=== PATIENT | male | born 1955 | race Caucasian/White ===

== ENCOUNTER → 2018-02-23 11:12 | Outpatient (CLI) | payer OTHER, SELFPAY ==
[2018-02-23 12:53] LABS: Anion Gap 9 (5-15); BUN 12 mg/dL (7-18); BUN/Creat Ratio 12.4 RATIO (10-20); Calcium,Total 8.5 mg/dL (8.5-10.1); Chloride 107 mmol/L (98-107); Cholesterol 210 mg/dL (200); Creatinine, Serum 0.97 mg/dL (0.70-1.30); EST Glomerular Filtration Rate 83 mL/min (>60); Est Glom Filt Rate - Afr Amer 101 mL/min (>60); Glucose 123 mg/dL (74-106); High Density Lipoprotein 35 mg/dL; Potassium 3.7 mmol/L (3.5-5.1); Sodium Level 145 mmol/L (136-145); Triglycerides 455 mg/dL
== END ==
PROVIDERS: Family Provider Family Medicine; PCP Family Medicine; Visit Provider Family Medicine
DX: Z00.00 Encounter for general adult medical examination without abnormal findings (principal); E29.1 Testicular hypofunction
CPT/HCPCS: 36415; 80048; 80061; 84403

== ENCOUNTER → 2018-08-24 11:00 | Outpatient (CLI) | payer OTHER, SELFPAY ==
[2018-08-24 12:58] LABS: Anion Gap 11 (5-15); BUN 12 mg/dL (7-18); BUN/Creat Ratio 11.3 RATIO (10-20); Calcium,Total 8.5 mg/dL (8.5-10.1); Chloride 108 mmol/L (98-107); Cholesterol 209 mg/dL (200); Creatinine, Serum 1.06 mg/dL (0.70-1.30); EST Glomerular Filtration Rate 75 mL/min (>60); Est Glom Filt Rate - Afr Amer 90 mL/min (>60); Glucose 134 mg/dL (74-106); High Density Lipoprotein 38 mg/dL; Potassium 4.1 mmol/L (3.5-5.1); Sodium Level 143 mmol/L (136-145); Triglycerides 296 mg/dL; Very Low Density Lipoprotein 59 mg/dL (5-40)
--- OUTSIDE RECORDS SUMMARY | 2018-10-29 02:09 | XMS RPT_ITS ---
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 / Community E29.1(ICD-10) Hospital Repository 02/23/2018 Unknown Z00.00 - Encounter Sam Rodríguez for general adult [facility] examination Repository without abnormal findings / Z00.00(ICD-10) PROCEDURES PROCEDURES No Procedure Records FoundRESULTS RESULTS BASIC METABOLIC Collected: 08/24/2018 Status: F Source: [place] PROFILE (BMP) 11:01 AM [facility] REPOSITORY TYPE CODE TESTS RESULT OUT OF RANGE REFERENCE UNITS LAB L501.0100 74-106 mg/dL High GLU 134 Result Comment: Fasting Glucose result greater than or equal to 126 mg/dL suggests DIABETES MELLITUS per A.D.A. criteria. Please note revised GLUCOSE reference range effective 2017. LAB L501.1000 7-18 mg/dL Normal BUN 12 LAB L501.1100 0.70-1.30 mg/dL Normal CREAT,SERUM 1.06 Result Comment: The validity of the calculated GFR AND GFRAA in patients over 70 years has not been determined. Clinical correlation is essential. LAB L501.1110 >60 mL/min Normal EST GFR 75 Result Comment: Non- GFR Calc LAB L501.1115 >60 mL/min Normal EST GFR - AA 90 Result Comment: GFR Calc LAB L501.1300 10-20 RATIO Normal BUN/CRE 11.3 LAB L501.2200 8.5-10.1 mg/dL CA Normal 8.5 LAB L501.5300 136-145 mmol/L NA Normal 143 LAB L501.5600 3.5-5.1 mmol/L K Normal 4.1 LAB L501.5900 98-107 mmol/L High CL 108 LAB L501.6100 21.0-32.0 mmol/L Normal CO2 24.0 LAB L501.6200 5-15 Normal GAP 11 Performed By: #### L500.2500, L500.4100 #### [facility] [address] [place], [place], [address] LIPID PROFILE Collected: 08/24/2018 Status: F Source: [place] 11:01 [facility] REPOSITORY TYPE CODE TESTS RESULT OUT OF RANGE REFERENCE UNITS LAB L501.4900 200 mg/dL High CHOL 209 Result Comment: <200 mg/dL Desirable 200-240 mg/dL Borderline >240 mg/dL High Risk LAB L501.5000 mg/dL High TRIG 296 Result Comment: The drugs N-Acetylcysteine and Metamizole may falsely depress this assay. Serum Triglycerides Reference Interval Normal <150 mg/dL Borderline high 150 - 199 mg/dL High 200 - 499 mg/dL Very High > or = 500 mg/dL LAB L501.6400 mg/dL Low HDL 38 Result Comment: The drugs N-Acetylcysteine and Metamizole may falsely depress this assay. Reference Range HDL <40 mg/dL Low HDL Cholesterol HDL >or= 60 mg/dL High HDL Cholesterol LAB L501.6500 0-130 mg/dL Normal LDL 112 LAB L501.6600 5-40 mg/dL High VLDL 59 Performed By: #### L500.2500, L500.4100 #### [facility] [address] [place], [place], [address] TESTOSTERONE, SERUM TOTAL Collected: 08/24/2018 Status: F Source: [place] 11:01 [facility] REPOSITORY TYPE CODE TESTS RESULT OUT OF REFERENCE UNITS RANGE LAB L509.3000 ng/dL Testosterone Normal 616.81 Result Comment: NORMAL REFERENCE RANGES MALE AGE <50 123.06 - 813.86 ng/dL MALE AGE >50 89.98 - 780.10 ng/dL FEMALE PREMENOPAUSE AGE 21 - 60 9.01 - 47.94 ng/dL FEMALE POSTMENOPAUSE AGE 45 - 89 <7.00 - 45.62 ng/dL REFERENCE RANGE AND METHODOLOGY CHANGED 07/27/2017 Performed By: #### L509.3000 #### [facility] [address] [place], [place], [address] BASIC METABOLIC Collected: 02/23/2018 Status: F Source: [place] PROFILE (BMP) 11:19 AM [facility] [place]POSITORY TYPE CODE TESTS RESULT OUT OF RANGE REFERENCE UNITS LAB L501.0100 74-106 mg/dL High GLU 123 Result Comment: Fasting Glucose result from 100 to 125 mg/dL suggests IMPAIRED HOMEOSTASIS per A.D.A. criteria. Please note revised GLUCOSE reference range effective 2017. LAB L501.1000 7-18 mg/dL Normal BUN 12 LAB L501.1100 0.70-1.30 mg/dL Normal CREAT,SERUM 0.97 Result Comment: The validity of the calculated GFR AND GFRAA in patients over 70 years has not been determined. Clinical correlation is essential. LAB L501.1110 >60 mL/min Normal EST GFR 83 Result Comment: Non- GFR Calc LAB L501.1115 >60 mL/min Normal EST GFR - AA 101 Result Comment: GFR Calc LAB L501.1300 10-20 RATIO Normal BUN/CRE 12.4 LAB L501.2200 8.5-10.1 mg/dL CA Normal 8.5 LAB L501.5300 136-145 mmol/L NA Normal 145 LAB L501.5600 3.5-5.1 mmol/L K Normal 3.7 LAB L501.5900 98-107 mmol/L CL Normal 107 LAB L501.6100 21.0-32.0 mmol/L Normal CO2 29.0 LAB L501.6200 5-15 Normal GAP 9 Performed By: #### L500.2500, L500.4100 #### [facility] [address] [place], [address] LIPID PROFILE Collected: 02/23/2018 Status: F Source: [place] 11:19 AM [facility] [place]POSITORY TYPE CODE TESTS RESULT OUT OF RANGE REFERENCE UNITS LAB L501.4900 200 mg/dL High CHOL 210 Result Comment: <200 mg/dL Desirable 200-240 mg/dL Borderline >240 mg/dL High Risk LAB L501.5000 mg/dL High TRIG 455 Result Comment: The drugs N-Acetylcysteine and Metamizole may falsely depress this assay. TRIGLYCERIDE IS GREATER THAN 400 mg/dL. LDL RESULT IS INVALID AND WILL NOT BE REPORTED. Serum Triglycerides Reference Interval Normal <150 mg/dL Borderline high 150 - 199 mg/dL High 200 - 499 mg/dL Very High > or = 500 mg/dL LAB L501.6400 mg/dL Low HDL 35 Result Comment: The drugs N-Acetylcysteine and Metamizole may falsely depress this assay. Reference Range HDL <40 mg/dL Low HDL Cholesterol HDL >or= 60 mg/dL High HDL Cholesterol LAB L501.6500 0-130 mg/dL Test Normal not performed LDL LAB L501.6600 5-40 mg/dL Test Normal not performed VLDL Performed By: #### L500.2500, L500.4100 #### [facility] [address] [place], [address] TESTOSTERONE, SERUM TOTAL Collected: 02/23/2018 Status: F Source: [place] 11:19 AM [facility] [place]POSIT[place] TYPE CODE TESTS RESULT OUT OF REFERENCE UNITS RANGE LAB L509.3000 ng/dL Testosterone Normal 273.51 Result Comment: NORMAL REFERENCE RANGES MALE AGE <50 123.06 - 813.86 ng/dL MALE AGE >50 89.98 - 780.10 ng/dL FEMALE PREMENOPAUSE AGE 21 - 60 9.01 - 47.94 ng/dL FEMALE POSTMENOPAUSE AGE 45 - 89 <7.00 - 45.62 ng/dL REFERENCE RANGE AND METHODOLOGY CHANGED 07/27/2017 Performed By: #### L509.3000 #### [facility] [address] [place], [address] ALLERGIES ALLERGIES No Allergies Records FoundENCOUNTERS ENCOUNTERS ADMIT/DISCHARGE ACCOUNT ADMITTING ENCOUNTER LOCATION SOURCE NUMBER CLASS 08/24/2018 [id number] Ambulatory [facility] ing:PLAB Repository 02/23/2018 [id number] [facility] 3 [facility] ing:PLAB Repository PAYERS PAYERS ENCOUNTER GUARANTOR PAYER SUBSCRIBER SOURCE 08/24/2018 FAUSTINO SEE3 CLARITZA Primary JENNY Morrison [place] Insurance:MEDICAL LONGDOB: [facility] [address]Zne: (419) [facility] [id number] [address] () Number: Repository [id number] Date:[id number] [place] [id number]: 08/24/2018 Secondary NOT GIVENUNK [place] Insurance:SELF PAY [facility] Number: Effective Repository Date:2018-08-24 02/23/2018 FAUSTINO SEE3 CLARITZA Primary Jenny EscobedoB: Olga Lidia [address] [place] [address] Insurance:MEDICAL [id number] Community [id number]: (419) [place] [address] () Number: Repository [id number] Date:[id number] [address] [place] [id number]: 02/23/2018 Secondary NOT GIVENUNK Olga Lidia Insurance:SELF PAY [facility] Number: Effective Repository Date:2018-02-23
== END ==
PROVIDERS: Family Provider Family Medicine; PCP Family Medicine; Visit Provider Family Medicine
DX: Z00.00 Encounter for general adult medical examination without abnormal findings (principal); E29.1 Testicular hypofunction
CPT/HCPCS: 36415; 80048; 80061; 84403

== ENCOUNTER → 2018-11-30 14:39 | Outpatient (CLI) | payer OTHER, SELFPAY ==
[2018-11-30 16:27] LABS: Hemoglobin A1c 6.1 % (4.2-6.3)
[2018-11-30 16:38] LABS: Anion Gap 7 (5-15); BUN 14 mg/dL (7-18); BUN/Creat Ratio 17.1 RATIO (10-20); Calcium,Total 8.6 mg/dL (8.5-10.1); Chloride 107 mmol/L (98-107); Cholesterol 269 mg/dL (200); Creatinine, Serum 0.82 mg/dL (0.70-1.30); EST Glomerular Filtration Rate 100 mL/min (>60); Est Glom Filt Rate - Afr Amer 121 mL/min (>60); Glucose 104 mg/dL (74-106); High Density Lipoprotein 34 mg/dL; PSA,Total - Annual Screen 0.76 ng/mL (0.00-4.00); Potassium 3.9 mmol/L (3.5-5.1); Sodium Level 141 mmol/L (136-145); Triglycerides 954 mg/dL
== END ==
PROVIDERS: Family Provider Family Medicine; PCP Family Medicine; Referring Provider Family Medicine; Visit Provider Family Medicine
DX: Z00.00 Encounter for general adult medical examination without abnormal findings (principal); E29.1 Testicular hypofunction; R73.09 Other abnormal glucose
CPT/HCPCS: 36415; 80048; 80061; 83036; 84153; 84403; G0103

== ENCOUNTER → 2019-02-26 10:06 | Outpatient (CLI) | payer OTHER, SELFPAY ==
[2019-02-26 12:48] LABS: ALB/GLOB Ratio 1.6 RATIO (0.9-2.4); AST(SGOT) 27 U/L (15-37); Alanine Aminotransfer ALT/SGPT 42 U/L (16-61); Albumin, Serum 3.9 g/dL (3.2-5.0); Alkaline Phosphatase 119 U/L (45-117); Anion Gap 9 (5-15); BUN 9 mg/dL (7-18); BUN/Creat Ratio 9.6 RATIO (10-20); Calcium,Total 8.6 mg/dL (8.5-10.1); Chloride 106 mmol/L (98-107); Creatinine, Serum 0.93 mg/dL (0.70-1.30); EST Glomerular Filtration Rate 87 mL/min (>60); Est Glom Filt Rate - Afr Amer 105 mL/min (>60); Globulin 2.5 g/dL (2.2-4.2); Glucose 148 mg/dL (74-106); Protein, Total 6.4 g/dL (6.4-8.2); Sodium Level 143 mmol/L (136-145)
[2019-02-26 13:16] LABS: Hemoglobin A1c 6.9 % (4.2-6.3)
== END ==
PROVIDERS: Family Provider Family Medicine; PCP Family Medicine; Visit Provider Family Medicine
DX: E29.1 Testicular hypofunction (principal); E80.4 Gilbert syndrome; R73.09 Other abnormal glucose
CPT/HCPCS: 36415; 80053; 83036; 84403

== ENCOUNTER → 2019-05-30 10:51 | Outpatient (CLI) | payer OTHER, SELFPAY ==
[2019-05-30 12:59] LABS: Hemoglobin A1c 6.5 % (4.2-6.3)
[2019-05-30 13:12] LABS: Anion Gap 7 (5-15); BUN 8 mg/dL (7-18); BUN/Creat Ratio 8.9 RATIO (10-20); Calcium,Total 8.6 mg/dL (8.5-10.1); Chloride 107 mmol/L (98-107); Cholesterol 151 mg/dL (200); EST Glomerular Filtration Rate 90 mL/min (>60); Est Glom Filt Rate - Afr Amer 109 mL/min (>60); Glucose 128 mg/dL (74-106); High Density Lipoprotein 37 mg/dL; PSA,Total - Annual Screen 1.07 ng/mL (0.00-4.00); Potassium 4.1 mmol/L (3.5-5.1); Sodium Level 143 mmol/L (136-145); Triglycerides 332 mg/dL; Very Low Density Lipoprotein 66 mg/dL (5-40)
== END ==
PROVIDERS: Family Provider Family Medicine; PCP Family Medicine; Referring Provider Family Medicine; Visit Provider Family Medicine
DX: E78.5 Hyperlipidemia, unspecified (principal); E11.9 Type 2 diabetes mellitus without complications; E29.1 Testicular hypofunction; Z12.5 Encounter for screening for malignant neoplasm of prostate
CPT/HCPCS: 36415; 80048; 80061; 83036; 84153; 84403; G0103

== ENCOUNTER → 2019-11-29 10:43 | Outpatient (CLI) | payer MEDICARE, OTHER, SELFPAY ==
[2019-11-29 12:16] LABS: Absolute Lymphocyte Count 1.01 X10^3/uL (0.83-4.51); Absolute Neutrophil Count 3.7 X10^3/uL (2.0-7.7); Basophil# 0.03 X10^3/uL; Basophil% 0.5 % (0-1); Eosinophil# 0.23 X10^3/uL; Eosinophils% 4.1 % (0-5); Hematocrit 45.9 % (40-54); Hemoglobin 15.8 g/dL (13.0-16.5); Lymphocyte # 1.01 X10^3/ul (4.0); Lymphocyte % 18.1 % (19-41); Mean Corp Hgb Conc 34.4 g/dL (32-36); Mean Corpuscular Hgb 31.2 pg (27.0-32.0); Mean Corpuscular Volume 90.7 fL (80-94); Mean Platelet Vol. 11.8 fl (6.2-12.0); Monocyte# 0.57 X10^3/uL; Monocyte% 10.2 % (0-10); NRBC Flagged by Analyzer 0 % (0-5); Neutrophil # 3.71 X10^3/uL (2.7-7.7); Neutrophil % 66.6 % (47-70); Platelet Count 133 K/mm3 (150-450); RBC Distribution Width CV 13.4 % (11.6-14.6); RBC Distribution Width SD 44.3 fl (35.1-43.9); Red Blood Count 5.06 M/mm3 (4.6-6.2); White Blood Count 5.6 K/mm3 (4.4-11.0)
[2019-11-29 12:31] LABS: Anion Gap 6 (5-15); BUN 12 mg/dL (7-18); BUN/Creat Ratio 13.5 RATIO (10-20); Calcium,Total 8.3 mg/dL (8.5-10.1); Chloride 109 mmol/L (98-107); Creatinine, Serum 0.89 mg/dL (0.70-1.30); EST Glomerular Filtration Rate 91 mL/min (>60); Est Glom Filt Rate - Afr Amer 110 mL/min (>60); Glucose 135 mg/dL (74-106); PSA,Total- Diagnostic 1.16 ng/mL (0.0-4.0); Sodium Level 143 mmol/L (136-145)
== END ==
PROVIDERS: PCP Family Medicine; Referring Provider Family Medicine; Visit Provider Family Medicine
DX: E29.1 Testicular hypofunction (principal); E11.9 Type 2 diabetes mellitus without complications
CPT/HCPCS: 36415; 80048; 84153; 84403; 85025

== ENCOUNTER → 2020-05-28 10:37 | Outpatient (CLI) | payer MEDICARE, OTHER, SELFPAY | PROVIDERS: PCP Family Medicine; Referring Provider Family Medicine; Visit Provider Family Medicine | DX: E29.1 Testicular hypofunction (principal) | CPT/HCPCS: 36415; 84403 ==

== ENCOUNTER → 2020-08-27 10:06 | Outpatient (CLI) | payer MEDICARE, OTHER, SELFPAY ==
[2020-08-27 12:36] LABS: Anion Gap 5 (5-15); BUN 10 mg/dL (7-18); BUN/Creat Ratio 10.3 RATIO (10-20); Calcium,Total 8.6 mg/dL (8.5-10.1); Chloride 112 mmol/L (98-107); Cholesterol 133 mg/dL (200); Creatinine, Serum 0.97 mg/dL (0.70-1.30); EST Glomerular Filtration Rate 82 mL/min (>60); Est Glom Filt Rate - Afr Amer 99 mL/min (>60); Glucose 130 mg/dL (74-106); High Density Lipoprotein 34 mg/dL; Potassium 3.9 mmol/L (3.5-5.1); Sodium Level 143 mmol/L (136-145); Triglycerides 271 mg/dL; Very Low Density Lipoprotein 54 mg/dL (5-40)
== END ==
PROVIDERS: PCP Family Medicine; Referring Provider Family Medicine; Visit Provider Family Medicine
DX: E11.9 Type 2 diabetes mellitus without complications (principal); E29.1 Testicular hypofunction
CPT/HCPCS: 36415; 80048; 80061; 84403

== ENCOUNTER 2020-09-05 10:46 | Day surgery (SDC) | payer MEDICARE, OTHER, SELFPAY ==
[2020-08-29 15:07] VITALS: BMI 36.6
--- NOTE | 2020-09-05 | HEM_PTH ---
PATIENT: FAUSTINO CORRAL [place] [facility] [id number] AGE/SX: 65/M ROOM: RE09/05/[address]: Dr. Tom Lind MD : 1955 BED: DIS: 09/05/2020 SPEC #: [id number] RECD: 09/05/20 14:48 STATUS: SHANEKA NAN #: [id number] HEMAL: 09/05/20 00:[address]: Tom Lind DEPT: SURGICAL PATHOLOGY RECD BY: Abel Wyman ENTERED: 09/08/20 10:51 SP TYPE: HEMORRHOID OTHR DR: Dr. Sam Rodríguez MD Tissues: HEMORRHOIDS Procedures: Surgery Specimen Level III HEADER OPERATION: Hemorrhoidectomy PRE-OP DIAGNOSIS: Grade III hemorrhoids TISSUE SUBMITTED: Left lateral hemorrhoidal tissue MICROSCOPIC DIAGNOSIS Left lateral hemorrhoidal tissue, hemorrhoidectomy: Submucosal vascular ectasia and thrombosis consistent with hemorrhoids. AM:juan 09/09/2020 MICROSCOPIC DESCRIPTION Slides are reviewed. GROSS DESCRIPTION Received in fixative is one container labeled with the patient's name and designated left lateral hemorrhoidal tissue. The specimen consists of three irregular fragments of light to dark ventura soft tissue ranging in size from 1 to 2.8 cm. Serial sections do not reveal mass lesions. Loop Cutter sections are submitted in one cassette. / AM:juan 09/08/20 TC:5 CPT: 14504
--- NOTE | 2020-09-05 06:40 | HP_ITS ---
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 Accompanied by: Is patient in pain?: No Allergies salicylic acid [From P and S (salicylic acid)] Allergy (Intermediate, Verified 08/29/20 15:09) stomach pain Medications aspirin 81 mg chewable tablet 81 mg PO DAILY 08/29/20 [History Confirmed 08/29/20] glimepiride 1 mg tablet 1 mg PO DAILY 08/29/20 [History Confirmed 08/29/20] paroxetine HCl 40 mg tablet 40 mg PO DAILY 08/29/20 [History Confirmed 08/29/20] rosuvastatin 10 mg tablet 10 mg PO DAILY 08/29/20 [History Confirmed 08/29/20] testosterone cypionate 200 mg/mL intramuscular oil 100 mg IM Q2W 08/29/20 [History Confirmed 08/29/20] PFSH Medical History Anxiety (Acute) Arthritis (Acute) Asthma (Acute) Blood in stool (Acute) Diabetes (Acute) Hemorrhoids (Acute) History of CVA (cerebrovascular accident) (Acute) History of back problems (Acute) Obesity (Acute) Surgical History (Updated 08/29/20 @ 15:06 by Lashanda Noble) Hx of hemorrhoidectomy (Acute) Family History (Updated 08/29/20 @ 15:07 by Lashanda Noble) Mother Breast cancer Colon cancer Social History (Updated 08/29/20 @ 16:[address] Tom Lind MD) Smoking Status: Former smoker alcohol intake: never substance use type: does not use HPI HPI HPI: FAUSTINO CORRAL is a 65 M who presents to the office today for HPI HPI Surgical H&P: Yes HPI: FAUSTINO LONG, is a 65 M who presents to the office today for Bleeding hemorrhoids. The patient reports that he has been having blood in the bowl and it has been very red. He had a hemorrhoidectomy about 10 years ago and reports that he had relief for years afterwards but for the last 4 years he has had discomfort in the rectal area as well as bleeding. This is worse especially with mowing the lawn. He reports his last colonoscopy was approximately 6 years ago. ROS General General: Yes weight change; no appetite, fatigue, colon cancer, breast cancer or weakness HEENT HEENT: No difficulty swallowing, eye injury, eye surgery, swollen glands or hoarseness Endo Endocrine: Yes diabetes mellitus; no thyroid disease, thyroid cancer, Hair loss, heat intolerance or cold intolerance Skin Skin: Yes rash; no changing moles Breast Breast: No left breast lump, right breast lump, nipple discharge, breast pain, abnormal mammogram, abnormal US or breast enlargement Musc Musculoskeletal: Yes back problems and arthritis; no rheumatoid arthritis, gout or joint pain Cardio Cardiovascular: No murmur, pacemaker, heart disease, atrial fibrillation, high blood pressure, heart attack, heart stent, palpitations, shortness of breat with exertion or chest pain Psych Psychiatric: Yes anxiety; no depression or hearing voices Resp Respiratory: No shortness of breath, No sleep apnea, No cough, No COPD, Yes asthma, No emphysema, No wheezing Gastro Gastrointestinal: No abdominal pain, No nausea or vomiting, No diarrhea, No constipation, Yes blood in stool, No acid reflux, Yes hemorrhoids, No ulcers, No gallbladder problem, No black,tarry stools Jamin Hematologic: No blood thinners, No blood disorders, No bleeding, No anemia, No blood clots Neuro Neurologic: No system reviewed and no additional complaints, except as docu, No as per HPI, No abnormal walking, No abnormal hearing, No abnormal movements, No abnormal speech, No behavioral changes, No burning sensations, No confusion, No seizure-like activity, No unsteadiness, No dizziness, No localized weakness, No frequent falls, No headache(s), No lack of coordination, No loss of vision, No memory loss, No numbness, No other visual disturbances, No radiating pain, No restless legs, No sensory deficit, No fainting, No tingling, No tremor(s), No weakness, Yes other (Mini stroke) Exam Const General: cooperative Orientation: alert, oriented x3 Chest Breast Palpation: No nipple discharge Resp Effort & Inspection: normal respiratory effort Auscultation: clear to auscultation bilaterally Cardio Rate: regular rate Rhythm: regular rhythm Heart Sounds: no murmurs GI Inspection: non-distended Palpation: soft, nontender Other: On rectal exam the patient does have a protruding external hemorrhoid on the left side which has erosion and ulceration. Assessment & Plan Problems 1. Grade III hemorrhoids K64.2 Plan The patient has bleeding hemorrhoids which appear to be internal and external. It is hard to tell if this is a masslike structure or external hemorrhoid. I would recommend exam under anesthesia with excision of this and send it for pathology. I discussed the risks of bleeding, infection, incontinence or urinary retention as well as muscular injury. The patient understands the risks and has been to proceed. We discussed the current risks associated with COVID-19. While it is understood that there is a community spread of COVID-19, the risk of meera COVID-19 while at [facility] ([facility]) is very low; however, the risk cannot be completely mitigated because of the community spread of the disease. We discussed in detail the risk of exposure to and/or potential harm posed by the COVID-19 virus with having a surgery/procedure at this time versus the risk of delaying the surgery/procedure. It is not possible to know either the risk of delaying the surgery or procedure or chance of getting an infection with perfect accuracy, but a joint decision was made to proceed at this time with the scheduled surgery/procedure as indicated on the consent form. Patient was notified that we will need to comply with any screening or testing [facility] wishes to perform or that surgery may be delayed for any positive results. Tom Lind MD Pager: [facility] [address] [place] [address], [address] [place] [address] Office: Coding Level of Care Code Off vis,new,level 3 Diagnoses Grade III hemorrhoids K64.2 ??Hemorrhoid type: third degree I have re-examined the patient. There are no clinical changes since date of exam.
[2020-09-05 11:19] VITALS: BP 145/81; PULSE 65; RESP 18; TEMP 36.6; O2SAT 96; BMI 34.4
[2020-09-05] MEDS: Lactated Ringers 1,000 ML 100 ML IV (11:27)
[2020-09-05] MEDS: Cefotetan 2 GM in 0.9% NS 100 ML IV (12:34)
[2020-09-05] MEDS: Lubricating Jelly 60 GM Tube 30 GM TOPICAL (12:40)
[2020-09-05] MEDS: Bupivacaine Mpf 0.5% 30 ML VIAL (12:45)
[2020-09-05] MEDS: Dibucaine 30 GM Tube 1 APPLIC (12:50)
[2020-09-05 13:10] VITALS: BP 145/81; BP 170/75; PULSE 75; RESP 20; TEMP 36.6; O2SAT 99
--- NOTE | 2020-09-05 13:11 | DCINST_ITS ---
Discharge Diet: No Restrictions Discharge Activity: Return to Normal Activity, May Not Drive - while you are taking narcotic pain medications. Do not drive, work with heavy equipment or sign legal documents for 24 hours after your surgery. Additional Activity Instructions:: Be aware that pain medications may cause nausea. You should typically eat light foods as you take your pain medications. Pain medications may also cause constipation, if you have difficulty with this please discuss with your doctor. Call your doctor if your incision/area has: Continuous Slow Oozing, Sudden Increased Bleeding, Increased Pain/ Swelling, Increased Redness, Foul Smelling Discharge, Swelling at the incision site Call your doctor if you observe: Fever of 101 or Higher Additional Dressing/Incision Instructions:: Leave the operative bandage on for 2 days. If a local anesthetic plug was placed in the anal area, try not to expel for [address]ucaine ointment on the perianal area as needed. Sitz baths twice daily and after bowel movements. Allergies/Adverse Reactions: Allergies Penicillins [PCN] Adverse Reaction (Verified 09/05/20 11:17) Upset Stomach Medications to take at Discharge aspirin 81 mg chewable tablet 81 mg PO DAILY 08/29/20 glimepiride 1 mg tablet 1 mg PO DAILY 08/29/20 paroxetine HCl 40 mg tablet 40 mg PO DAILY 08/29/20 rosuvastatin 10 mg tablet 10 mg PO DAILY 08/29/20 testosterone cypionate 200 mg/mL intramuscular oil 100 mg IM Q2W 08/29/20 Docusate Sodium [Colace] 100 mg PO BID #20 cap 09/05/20 Oxycodone HCl/Acetaminophen [Percocet 5-325 mg Tablet] 1 - 2 tab PO Q6H PRN PRN 7 Days #50 tablet 09/05/20 The following prescriptions were given: Docusate Sodium [Colace] 100 mg PO BID #20 cap Transmission Status: Pending to [facility] Oxycodone HCl/Acetaminophen [Percocet 5-325 mg Tablet] 1 - 2 tab PO Q6H PRN PRN 7 Days #50 tablet PRN Reason: Pain Score 4-10/10 Transmission Status: Sent to [facility] Primary Care Physician: Sam Rodríguez MD [Primary Care Provider] - Test Results: Test results from this visit will be discussed in further detail at your follow- up appointment, if applicable. Please Follow Up With: Tom Lind MD When: Please call to schedule 2 week follow up appointment. [phone]
--- NOTE | 2020-09-05 13:13 | PCM.OPRPT ---
Problem List (1) Hemorrhoids Status: Acute Qualifiers: Hemorrhoid type: second degree Qualified Code(s): K64.1 - Second degree hemorrhoids Report of Operation Date of Procedure: 09/05/20 Pre-Operative Diagnosis: Hemorrhoids with bleeding Post-Operative Diagnosis: Same Surgery/Procedure Performed:: Hemorrhoidectomy Specimen's removed: Left lateral hemorrhoid Description of Procedure: Patient was taken back to the operating room and general anesthesia was initiated. The patient was placed in the prone jackknife position. The buttocks were taped open. The perineal region was prepped and draped in usual sterile fashion. The patient had a tongue of tissue on the left side of the anus which was an internal and external hemorrhoid column. I well-lubricated retractor was placed into the anus and the hemorrhoidal tissue in the left lateral position was removed using harmonic scalpel. There was good hemostasis and the mucosa was reapproximated using a running 3-0 chromic suture. The area was irrigated and suctioned dry and the rest of the anus was inspected and there appeared to be no other areas where the bleeding was originating. Local anesthetic was injected in all 4 quadrants around the anus. Next a Gelfoam pad soaked with dibucaine cream was rolled and placed into the rectum and a dressing was placed. Patient was awoken and taken to PACU in stable condition. - Admit VTE Documentation VTE Mechan Device Prophylaxis: SCD's
[2020-09-05 13:15] VITALS: BP 134/65; BP 145/81; PULSE 78; RESP 18; O2SAT 98
[2020-09-05 13:16] LABS: Bedside Glucose 130 mg/dL (70-110)
[2020-09-05 13:30] VITALS: BP 128/61; BP 145/81; PULSE 76; RESP 20; O2SAT 97
[2020-09-05 13:45] VITALS: BP 120/64; BP 145/81; PULSE 78; RESP 18; TEMP 36.9; O2SAT 97
[2020-09-05 13:45] LABS: Bedside Glucose 148 mg/dL (70-110)
[2020-09-05] MEDS: Acetaminophen 325 MG Tablet PO (14:14)
[2020-09-05] MEDS: oxyCODONE 5 MG Tablet PO (14:14)
[2020-09-05 14:56] VITALS: BP 141/75; BP 145/81; PULSE 79; RESP 16; TEMP 37.1; O2SAT 96
== END 2020-09-05 15:01 | disposition home or self-care (01) ==
LOC: SDC 10:46 → AC 10:47
PROVIDERS: PCP Family Medicine; Referring Provider Surgery; Visit Provider Surgery
PROC: (CPT 46255; principal; 2020-09-05 12:15)
DX: K64.1 Second degree hemorrhoids (principal); Z20.828 Contact with and (suspected) exposure to other viral communicable diseases; F41.9 Anxiety disorder, unspecified; M19.90 Unspecified osteoarthritis, unspecified site; J45.909 Unspecified asthma, uncomplicated; E11.9 Type 2 diabetes mellitus without complications; E66.9 Obesity, unspecified; Z68.36 Body mass index [BMI] 36.0-36.9, adult; K58.9 Irritable bowel syndrome, unspecified; E78.00 Pure hypercholesterolemia, unspecified; Z86.73 Personal history of transient ischemic attack (TIA), and cerebral infarction without residual deficits; Z79.84 Long term (current) use of oral hypoglycemic drugs; Z79.82 Long term (current) use of aspirin; Z79.899 Other long term (current) drug therapy; Z87.891 Personal history of nicotine dependence
CPT/HCPCS: 46255; 82962; 87426; 88304; C9803; J7120; J2405

== ENCOUNTER → 2021-02-25 10:57 | Outpatient (CLI) | payer MEDICARE, OTHER, SELFPAY ==
[2021-02-25 12:34] LABS: Microalbumin,Random Urine 36.6 mg/L (NO RANGE EST.); Microalbumin:Creatinine Ratio 12.7 mg/g CRE (<30 mg/g CRE)
[2021-02-25 12:55] LABS: ALB/GLOB Ratio 1.6 RATIO (0.9-2.4); AST(SGOT) 30 U/L (15-37); Alanine Aminotransfer ALT/SGPT 45 U/L (16-61); Albumin, Serum 4.1 g/dL (3.2-5.0); Alkaline Phosphatase 109 U/L (45-117); Anion Gap 6 (5-15); BUN 13 mg/dL (7-18); BUN/Creat Ratio 13.3 RATIO (10-20); Calcium,Total 8.3 mg/dL (8.5-10.1); Chloride 108 mmol/L (98-107); Cholesterol 153 mg/dL (200); Creatinine, Serum 0.98 mg/dL (0.70-1.30); EST Glomerular Filtration Rate 82 mL/min (>60); Est Glom Filt Rate - Afr Amer 99 mL/min (>60); Globulin 2.5 g/dL (2.2-4.2); Glucose 123 mg/dL (74-106); High Density Lipoprotein 40 mg/dL; PSA,Total - Annual Screen 1.51 ng/mL (0.00-4.00); Potassium 3.7 mmol/L (3.5-5.1); Protein, Total 6.6 g/dL (6.4-8.2); Sodium Level 141 mmol/L (136-145); Triglycerides 330 mg/dL; Very Low Density Lipoprotein 66 mg/dL (5-40)
== END ==
PROVIDERS: PCP Family Medicine; Visit Provider Family Medicine
DX: Z12.5 Encounter for screening for malignant neoplasm of prostate (principal); E29.1 Testicular hypofunction; E11.9 Type 2 diabetes mellitus without complications
CPT/HCPCS: 36415; 80053; 80061; 82043; 82570; 84153; 84403; G0103

== ENCOUNTER → 2021-12-30 | Outpatient (CLI) | payer MEDICARE, OTHER, SELFPAY ==
--- NOTE | 2021-12-30 10:25 | RAD_ITS ---
INDICATION: BACK PAIN EXAMINATION/TECHNIQUE: X-RAY - XR Spine Lumbar Min 4 Views COMPARISON: None. FINDINGS: VERTEBRAE: Preserved vertebral body height. No fracture. 3 mm of grade 1 anterolisthesis of L4 on L5.. Slight straightening of the normal lumbar lordotic curvature. Severe degenerative disc disease at the L5-S1 level with near complete intervertebral disc space height loss. Mild to moderate degenerative disc disease at L1-L2 with mild disc space height loss and anterior osteophytic spurring. Multilevel facet arthropathy most severe at L5-S1 and to a lesser degree, L3-L4 and L4-L5. INCLUDED ABDOMEN: Included bowel gas pattern is non-obstructive. No radiopaque foreign bodies. RAD/L/S Spine Min 4 Views IMPRESSION: 1. No acute fracture or malalignment. 2. Grade 1 anterolisthesis of L4 on L5. 3. Multilevel degenerative changes most prominent at L5-S1 where there is severe degenerative disease and facet arthropathy.. Electronically Signed: Joseph Omalley, at 15:52 EDT ,
== END | disposition home or self-care (01) ==
LOC: MTRAD 10:20
PROVIDERS: PCP Family Medicine; Referring Provider Family Medicine; Visit Provider Family Medicine
DX: M43.16 Spondylolisthesis, lumbar region (principal); M51.36 Other intervertebral disc degeneration, lumbar region
CPT/HCPCS: 72110

== ENCOUNTER → 2022-01-14 | Outpatient (CLI) | payer MEDICARE, OTHER, SELFPAY ==
--- NOTE | 2022-01-14 15:18 | MRI_ITS ---
STUDY: MRI LUMBAR SPINE WITHOUT CONTRAST REASON FOR EXAM: Male, 66 years old. BACK PAIN INTO BACK OF BILATERAL LEGS TECHNIQUE: Standardized fat and water weighted pulse sequences were obtained in the sagittal and axial planes. COMPARISON: Lumbar spine x-ray dated DECEMBER 30, 2021 FINDINGS: T12-L1: Mild disc desiccation and several no change in endplate degenerative signal. No significant disc herniation or bulging. Normal bilateral facet joints. Normal central canal and bilateral lateral recesses. Normal bilateral intervertebral neural foramina. Normal lumbar lordosis. There is a levoscoliosis of the lumbar spine. Normal conus medullaris that terminates at the T12-L1 level. L1-2: Moderate disc space narrowing and mild to moderate endplate degenerative changes. Diffuse disc bulge/osteophyte complex. Retrolisthesis of L1 on L2 of no more than 2 mm. Mild central canal stenosis is present as well as facet joint and ligament of flava hypertrophy. Normal bilateral intervertebral neural foramina. L2-3: Mild to moderate disc space narrowing with minimal annular bulging. Retrolisthesis of less than 2 mm. Mild facet joint and ligament of flava hypertrophy contributing to mild central canal stenosis. Normal bilateral intervertebral neural foramina. L3-4: Mild to moderate disc space narrowing with broad-based is herniation/spur complex combined with moderate facet joint hypertrophy results in moderate central canal stenosis. Mild bilateral foraminal stenosis. Mild endplate degenerative changes. L4-5: Normal endplates. Diffuse disc desiccation and minimal posterior disc space narrowing and annular bulging. Anterolisthesis of L4 and L5 of 2 to 3 mm uncovering the posterior aspect of the disc. Severe central canal stenosis is present due to combine disc bulging and significant facet joint hypertrophy. Mild bilateral foraminal stenosis. L5-S1: Moderate disc space narrowing with minor diffuse annular bulging. Mild to moderate endplate degenerative changes. Normal bilateral facet joints. Normal central canal and bilateral lateral recesses. Normal bilateral intervertebral neural foramina. Normal visualized sacral ala. Normal visualized paraspinous soft tissue structures. MRI/Spine Lumbar (Routine) IMPRESSION: 1. Multilevel degenerative changes, as described above. 2. Moderate to severe central canal stenosis at L3-L4 and L4-L5. Electronically Signed: Candelario Darden MD at 9:22 EDT ,
== END | disposition home or self-care (01) ==
LOC: MRI 15:16
PROVIDERS: PCP Family Medicine; Referring Provider Family Medicine; Visit Provider Family Medicine
DX: M51.36 Other intervertebral disc degeneration, lumbar region (principal); M48.061 Spinal stenosis, lumbar region without neurogenic claudication
CPT/HCPCS: 72148

== ENCOUNTER → 2022-02-22 | Outpatient (CLI) | payer MEDICARE, OTHER, SELFPAY ==
[2022-02-22 12:34] LABS: Anion Gap 7 (5-15); BUN 17 mg/dL (7-18); Calcium,Total 8.7 mg/dL (8.5-10.1); Chloride 107 mmol/L (98-107); Cholesterol 150 mg/dL (200); Creatinine, Serum 0.81 mg/dL (0.70-1.30); EST Glomerular Filtration Rate 101 mL/min (>60); Est Glom Filt Rate - Afr Amer 122 mL/min (>60); Glucose 149 mg/dL (74-106); High Density Lipoprotein 46 mg/dL; Potassium 3.6 mmol/L (3.5-5.1); Sodium Level 141 mmol/L (136-145); Triglycerides 234 mg/dL; Very Low Density Lipoprotein 47 mg/dL (5-40)
== END | disposition home or self-care (01) ==
LOC: MFPLAB 10:41
PROVIDERS: PCP Family Medicine; Visit Provider Family Medicine
DX: E11.9 Type 2 diabetes mellitus without complications (principal)
CPT/HCPCS: 36415; 80048; 80061

== ENCOUNTER → 2022-04-16 | Outpatient (CLI) | payer MEDICARE, OTHER, SELFPAY ==
[2022-04-16 17:42] LABS: Hemoglobin A1c 7.5 % (3.8-5.6)
[2022-04-18 11:42] LABS: Fructosamine 307 umol/L (0-285)
== END | disposition home or self-care (01) ==
LOC: MFPLAB 14:51
PROVIDERS: PCP Family Medicine; Referring Provider Family Medicine; Visit Provider Orthopaedic Surgery
DX: E11.9 Type 2 diabetes mellitus without complications (principal)
CPT/HCPCS: 36415; 82985; 83036

== ENCOUNTER 2022-08-16 07:55 | Inpatient (IN) | payer MEDICARE, OTHER, SELFPAY ==
--- NOTE | 2022-08-06 09:20 | EKG12_ITS ---
Test Reason : PREOP Blood Pressure : / mmHG Vent. Rate : 060 BPM Atrial Rate : 060 BPM P-R Int : 162 ms QRS Dur : 084 ms QT Int : 428 ms P-R-T Axes : 045 019 062 degrees QTc Int : 428 ms Normal sinus rhythm Low voltage QRS (Limb Leads) Inferior infarct , age undetermined , cannot be excluded Abnormal ECG Confirmed by BETO GARZA, GELACIO ([id number]), school photograph editor MARJORIE HAYES ([id number]) on 08/10/2022 1:28:25 PM Referred By: MICHAEL Confirmed By:GELACIO PÉERZ MD
[2022-08-06 10:25] LABS: Absolute Lymphocyte Count 1.04 X10^3/uL (0.83-4.51); Absolute Neutrophil Count 3.1 X10^3/uL (2.0-7.7); Basophil# 0.05 X10^3/uL; Eosinophil# 0.17 X10^3/uL; Eosinophils% 3.5 % (0-5); Hematocrit 42.2 % (40-54); Hemoglobin 15.1 g/dL (13.0-16.5); Lymphocyte # 1.04 X10^3/ul (0.83-4.51); Lymphocyte % 21.7 % (19-41); Mean Corp Hgb Conc 35.8 g/dL (32-36); Mean Corpuscular Hgb 32.5 pg (27.0-32.0); Mean Corpuscular Volume 90.8 fL (80-94); Mean Platelet Vol. 12.2 fl (6.2-12.0); Monocyte# 0.45 X10^3/uL; Monocyte% 9.4 % (0-10); NRBC Flagged by Analyzer 0 % (0-5); Neutrophil # 3.07 X10^3/uL (2.7-7.7); Neutrophil % 64.2 % (47-70); Platelet Count 138 K/mm3 (150-450); RBC Distribution Width CV 13.2 % (11.6-14.6); RBC Distribution Width SD 43.3 fl (35.1-43.9); Red Blood Count 4.65 M/mm3 (4.6-6.2); White Blood Count 4.8 K/mm3 (4.4-11.0)
[2022-08-06 10:33] LABS: Hemoglobin A1c 5.9 % (3.8-5.6)
[2022-08-06 10:47] LABS: Magnesium 2.2 mg/dL (1.6-2.6)
[2022-08-06 11:05] LABS: Anion Gap 6 (5-15); BUN 19 mg/dL (7-18); BUN/Creat Ratio 18.1 RATIO (10-20); Calcium,Total 9.1 mg/dL (8.5-10.1); Chloride 109 mmol/L (98-107); Creatinine, Serum 1.05 mg/dL (0.70-1.30); EST Glomerular Filtration Rate 75 mL/min (>60); Est Glom Filt Rate - Afr Amer 90 mL/min (>60); Glucose 117 mg/dL (74-106); Potassium 3.7 mmol/L (3.5-5.1); Sodium Level 143 mmol/L (136-145)
[2022-08-06 11:33] LABS: HIV - WCH Non-Reactive (Nonreactive); Hepatitis B Surface Antibody Non-Reactive; Hepatitis C Antibody Non-Reactive (Nonreactive)
[2022-08-07 11:14] LABS: Hepatitis A AB, Total Negative (Negative)
--- NOTE | 2022-08-11 10:13 | HP.PCM_ITS ---
History and Physical MR#: [id number] Acct: [id number] Name:FAUSTINO KONG Rep #: [id number] : 1955 ? ? Provider: Dr. Daquan Mata, DO Age/Sex:? 66/M ? ? Location: [facility] [email or web address] Status: Signed Intake Intake Visit Reasons:?Lumbar spine Allergies Penicillins [PCN] Adverse Reaction (Verified 04/16/22 14:06) Upset Stomach Medications glimepiride 1 mg tablet 1 mg PO DAILY 08/29/20 [History Confirmed 04/16/22] paroxetine HCl 40 mg tablet (Paxil) 40 mg PO DAILY 08/29/20 [History Confirmed 04/16/22] cetirizine 10 mg tablet 10 mg PO DAILY PRN 01/22/22 [History Confirmed 04/16/22] meloxicam 15 mg tablet 15 mg PO DAILY 01/22/22 [History Confirmed 04/16/22] simvastatin 20 mg tablet 20 mg PO QHS 01/22/22 [History Confirmed 04/16/22] PFSH Medical History? Anxiety Arthritis Asthma Blood in stool Diabetes Hemorrhoids History of back problems History of CVA (cerebrovascular accident) Obesity Surgical History? Hx of hemorrhoidectomy (~09/05/20) Family History? Mother Breast cancer Colon cancer Social History? Smoking Status:? Former smoker alcohol intake:? never substance use type:? does not use HPI Lumbar spine Details: Parts of this documentation were recorded by a scribe, this documentation accurately reflects the service provided and the decisions made by me, Dr. Daquan Mata, DO 04/16/22 [id number]. FAUSTINO CORRAL is a 66 year old M here today for? F/U on lumbar spine after having a lumbar epidural steroid injection with Dr. Balbuena. Patient states he is still having pain. His pain level depends on how much he does. States that his pain is across his lower back and radiates down both legs. States that the injections he lped stop the numbness in his feet. States that he takes lexicam once a day. Sates that he uses an ice pack when he needs to. States that he uses the ice pack several times a week. States that the injections weren't helpful for his back the only thing it helped was his numbness. Sates that the meloxicam took care of most of his severe pain. Returns in the company of his after having had 2 epidural steroid injections by Dr. Balbuena.? Initially they helped him quite a bit and they are still helping him some however the pain is returning and he said that he is tired of living this way and would like something done surgically.? First saw him he was not too crazy about the concept of surgical intervention however now he is as he has finally reached a point where he does not want to put up with it anymore.? I went over his MRI scan again and he has severe stenosis at L4-5 and moderate stenosis at L3-4.? I think however that we would probably go ahead and decompress both levels.? I told him would be a solid month or more before we could actually do the surgery.? In addition to that on June 09 his is going to have a procedure and he needs to be there for that.? So its even pos sibly we will do the surgery until June or possibly we could do it as early as a month.? Since he is diabetic we are going to order a fructosamine level and hemoglobin A1c to be drawn today so that I can see what his baselines are at this point in time.? I will see him again at preop here in the clinic 1 week or so before his surgery. Coding Level of Care Code Off vis,est,level 2 Diagnoses Spinal stenosis of lumbar region with radiculopathy? M48.061; M54.16
[2022-08-16] VITALS (19 sets, daily range): BP systolic 93–124; BP diastolic 50–67; PULSE 55–81; RESP 12–18; TEMP 36.5–37.1; O2SAT 92–100; BMI 31.0
[2022-08-16] MEDS: Lactated Ringers 1,000 ML 15 ML IV (05:50)
[2022-08-16] MEDS: Magnesium 1 GM over 15 mins IV (05:55)
[2022-08-16] MEDS: Acetaminophen 500 MG Tablet 1000 MG PO ×3 (06:16→22:18)
[2022-08-16 06:25] LABS: Bedside Glucose 174 mg/dL (74-106)
[2022-08-16] MEDS: Cefazolin 2 GM in 0.9% Normal Saline 100 ML IV (08:15)
[2022-08-16] MEDS: THROMBIN (RECOMBINANT) 20,000 UNIT VIAL 20000 UNIT TOPICAL (08:45)
--- NOTE | 2022-08-16 08:55 | RAD_ITS ---
STUDY: X-RAY - LUMBAR SPINE REASON FOR EXAM: Male, 67 years old. LAMINECTOMY DECOMPRESSION L3-4, L4-5 TECHNIQUE: 1 view(s) of the lumbar spine were obtained. COMPARISON: None FINDINGS: The localization instrument is seen posterior to the L5-S1 disc space level. RAD/Spine 1 View Any Level IMPRESSION: The localization instrument is seen posterior to the L5-S1 disc space level. Electronically Signed: Og Yañez MD at 8:12 EST ,
--- NOTE | 2022-08-16 09:00 | RAD_ITS ---
STUDY: X-RAY - LUMBAR SPINE REASON FOR EXAM: Male, 67 years old. LAMINECTOMY DECOMPRESSION L3-4, L4-5 TECHNIQUE: 1 view(s) of the lumbar spine were obtained. COMPARISON: None FINDINGS: A single lateral view was obtained intraoperatively. The localization instrument is seen posterior to the L4-L5 disc space level. RAD/Spine 1 View Any Level IMPRESSION: The localization instrument is seen posterior to the L4-L5 disc space level. Electronically Signed: Og Yañez MD at 11:01 EST ,
--- NOTE | 2022-08-16 11:05 | OP.PCM_ITS ---
Report of Operation Description of Surgical Findings:: Preoperative diagnosis: Spinal stenosis L4-5 and L3-4 Postoperative diagnosis: The same Procedure: #1 lumbar laminectomy decompression L4-5 CPT code 28384 #2 lumbar laminectomy decompression L3-4 CPT code 00373/51 Surgeon: Dr. Mata bilingual legal assistant: Zeny MAYNARD Anesthesia: General endotracheal by [facility] Estimated blood loss: 150 cc Drains: Medium Hemovac Complications: None Procedure: Patient was taken to the OR where he was placed under general endotracheal anesthesia. A Curtis catheter was inserted. Neuro monitoring placed their leads on the patient. The patient was then moved onto the prone position on the Julián frame. After appropriate positioning with care to protect the genitalia his bony prominences the brachial plexus on both sides and the ulnar nerves on both sides the back was prepped and draped standard fashion. Made a longitudinal incision centered over L4 5 subcutaneous tissues were incised length of the skin incision I then opened the lumbar fascia to the left of the spinous process and elevated the paravertebral muscles off the lamina of 4 and 5 and intraoperative x-ray was taken however we were at L5-S1. We moved to the marker of 1 level and took another x-ray that confirmed that we were now at L4-5 this was also confirmed by the radiologist. I then continued elevated paravertebral muscles off the lamina of 4 and the lamina of L3. Note that he had a lot of bleeding it seemed like everything we touch would bleed. We then open the right side in the same fashion elevating paravertebral muscles off the lamina of 4 on the right side and the lamina of L3 on the right side. The super slide retractors were then put in place. Noted we thoroughly irrigated with copious amounts of sterile saline every 10 to 50 minutes in the course of the case. Using double-action rongeurs remove the spinous process of L4 and this brought the spinous process of L3. I thinned the lamina down with a double- action rongeurs at both levels. I then used sharp angled curettes to release ligamentum flavum off the underside of the lamina of L4. The laminectomy was carried out on both right and left with 45 degree Kerrison rongeurs I then remove the ligamentum flavum in retrograde fashion with a 45 degree Kerrison rongeurs the completely opened up the canal and opened up the stenotic portion. We then moved up to the of the L3 lamina where again we late release ligamentum flavum off the underside of the lamina of 3. 45 degree rongeurs were then used to gently remove the lamina on both sides. Note that we had to use cottonoids here and there for protection of the dura. I then remove the ligamentum flavum 1 bite at a time with a 45 degree Kerrison rongeurs and all the way out to the lateral recesses and open them up completely on both sides. Note that I I decompressed to the left side from the right side moved around to the other side of the table. Note that there was some question about the possibility of a facet cyst in between L3-4 and L4-5 even though it was not called by the radiologist it was a rather suspicious area even though I personally did not feel it was I had to check and I checked the dura on both sides in between 3 4 and 4 5 and found to be just dura nothing else. Then placed amniotic membrane over the laminectomy sites. This will prevent adhesions to the dura. We then placed Gelfoam over the top of that. A medium Hemovac was inserted. I then closed the lumbar fascia using [id number] suture with #1 Vicryl followed by reapproximation of the subcutaneous tissues in 2 layers with 2-0 Vicryl and finally the skin was approximated using skin clips. Sterile dressings were then applied. The patient was then recovered in the OR he was moved to his hospital bed and taken to recovery in satisfactory condition. This the end of operative summary on Delvin Matt. This is Dr. Mata dictating.
[2022-08-16 11:50] LABS: Bedside Glucose 159 mg/dL (74-106)
[2022-08-16] MEDS: oxyCODONE 5 MG Tablet PO ×3 (14:14→22:25)
[2022-08-16] MEDS: Paroxetine 20 MG Tablet 40 MG PO (15:45)
[2022-08-16] MEDS: hydroCHLOROthiazide 25 MG Tablet PO (15:45)
[2022-08-16] MEDS: amLODIPine 5 MG Tablet PO (15:45)
[2022-08-16] MEDS: Lisinopril 20 MG Tablet PO (15:45)
[2022-08-16] MEDS: Cefazolin 1 GM/50 ML BAG IV ×2 (15:46→23:31)
[2022-08-16] MEDS: Lactated Ringers 1,000 ML 100 ML IV ×2 (15:48→20:34)
--- NOTE | 2022-08-16 15:58 | PN.HOSP_ITS ---
Subjective Subjective Patient with history of chronic ongoing lumbar back pain following with chronic pain management with ongoing lumbar epidural steroid injections which have become less effective with ongoing lumbar pain as well as rad iation/radiculopathy to bilateral lower extremities with paresthesias s/p 08/16/2022 lumbar laminectomy and decompression of L3-4, L4-[address] Mata. Hospitalist consultation for medication management requested. Patient currently reporting a focal pain at the incision site otherwise denies any significant lumbar back pain or any radicular discomfort or paresthesias. He recently tolerated Jell-O and denies any nausea currently. Patient denies fevers, chills, nausea, emesis, abdominal pain, chest pain or dyspnea. Objective Data Objective Data Vital Signs: Vital Signs Temp Pulse Resp BP Pulse Ox O2 Del Method O2 Flow Rate 98 F 81 18 112/64 93 Nasal Cannula 2 08/16/22 15:57 08/16/22 15:57 08/16/22 15:57 08/16/22 15:57 08/16/22 15:57 08/16/22 15:57 08/16/22 15:57 Oxygen Flow Rate (L/min) 2 Oxygen Delivery Method Nasal Cannula Weight: 210 lb Body Mass Index (BMI) 31.0 Intake & Output: Intake and Output for Last 24 Hours 08/14/22 08/15/22 08/16/22 23:59 23:59 23:59 Intake Total 2362.50 / 2362.50 Output Total 393 / 393 Balance 1969.50 / 1969.50 Lab / Micro Data Result Diagrams: 08/06/22 09:31 08/06/22 09:31 Labs: Laboratory Results - last 24 hr 08/16/22 05:57: POC Glucose 174 H 08/16/22 11:32: POC Glucose 159 H Micro: Microbiology 08/06/22 09:31 Swab (Method) Nasal Screen MRSA/MSSA - Final Radiography Diagnostic Testing: Radiology Impression Spine X-Ray 08/16/22 09:00 IMPRESSION: The localization instrument is seen posterior to the L4-L5 disc space level. Electronically Signed: Og Yañez MD at 11:01 EST , Physical Exam Narrative Physical Examination: General: Awake, alert, oriented x 3 and cooperative, laying in the MedSurg bed, fatigued, denies any marked pain at this time. Skin: Normal color, normal turgor, no icterus, no cyanosis except status post recent R with dressings in place without drainage. HEENT: AT/NC, EOMI, PERRLA, mildly dry MM, no carotid bruits or JVD noted. Lungs: Mildly diminished, greater bases, poor effort, no rales, ronchi or wheez ing. Heart: Currently regular rate and rhythm; no gallop, rub audible. Abdomen: Soft, obese, NTTP, ND, mildly hyperactive BS, no HSM. Extremities: No cyanosis, no clubbing, mild ankle nonpitting edema, peripheral pulses intact, sensation intact. Neurological: Patient awake, alert, oriented as noted, cognitive function intact although patient is fatigued; pupils equally reactive to light and accomm odation, cranial nerves II-XII grossly normal, moving all 4 extremities although somewhat limited given recent lumbar surgery, strength accordingly moderately to severely globally creased but improving. Psychiatric: Affect appears fatigued, no acute evidence of depressive or anxiety feelings. Assessment & Plan Assessment/Plan (1) Spinal stenosis of lumbar region with radiculopathy: PLAN: Plan The patient is a 67 y/o M w/ PMHx: Hx TIA, HTN, HLD, Obesity, Diabetes mellitus type II, Anxiety and Depression, Former tobacco use, IBS, Cannabis usage, Hx Migraine headaches who presents to the [facility] 08/16/22 secondary to chronic ongoing lumbar back pain following with chronic pain management with ongoing lumbar epidural steroid injections which have become less effective with ongoing lumbar pain as well as radiation/radiculopathy to bilateral lower extremities with paresthesias for planned lumbar laminectomy and decompression of L3-4, L4-[address] Mata. #1. Chronic lumbar back pain with spinal stenosis of the lumbar region with associated bilateral lower extremity radiculopathy: Failed conservative therapies and treatments, admitted per Dr. Mata, s/p lumbar laminectomy and decompression of L3-4, L4-5, post-operative pain management, bowel regimen, DVT Prophylaxis, PT/OT/CM per surgery discretion. #2. History TIA: Recommend addition of low-dose aspirin therapy once cleared per surgery, continue hypertensive regimen, not on statin therapy per current list, continue diabetic interventions with temporary alterations as noted. #3. Hypertension: Continue home regimen including lisinopril, hydrochlorothiazide, amlodipine, PRN hydralazine. #4. Hyperlipidemia: Not on regimen, encourage continued outpatient follow-up. #5. Diabetes mellitus type II: May opt to hold oral home regimen, ADA diet, accu checks w/ ISS. #6. Chronic cannabis usage: Reported in history, if on chronic pain regimen will necessitate clean status. #7. Chronic migraine headaches: Per current list on a chronic regimen, will monitor and administer as needed agents if necessary. #8. Obesity: Weight loss and lifestyle changes encouraged. #9. Former tobacco use: Encourage continued tobacco cessation. #10. Anxiety and depression: We will continue patient home paroxetine regimen. #11. DVT prophylaxis: SCDs, chemoprophylaxis per surgery discretion given recent OR. Admission Evaluation Time spent evaluating chart, patient history, patient evaluation, care planning and discussion with specialists: 50 minutes. Charges/Coding Visit Charges Inpatient E&M: 24666 [facility] Hosp L3
[2022-08-16] MEDS: Ensure Surgery 237 ML LIQUID PO (16:43)
[2022-08-16 17:10] LABS: Bedside Glucose 181 mg/dL (74-106)
[2022-08-16] MEDS: Insulin Lispro 100 UNIT/ML INSULN.PEN SC (22:18)
[2022-08-16 23:00] LABS: Bedside Glucose 180 mg/dL (74-106)
[2022-08-16] MEDS: Morphine 2 MG/ML Syringe IV (23:35)
[2022-08-17 03:00] VITALS: BP 103/59; PULSE 62; RESP 18; TEMP 36.6; O2SAT 97
[2022-08-17] MEDS: oxyCODONE 5 MG Tablet PO ×2 (03:21→18:28)
[2022-08-17] MEDS: Morphine 2 MG/ML Syringe IV (05:36)
[2022-08-17] MEDS: Acetaminophen 500 MG Tablet 1000 MG PO ×3 (05:36→21:01)
[2022-08-17] MEDS: Lactated Ringers 1,000 ML 100 ML IV (05:37)
[2022-08-17 06:56] LABS: Bedside Glucose 135 mg/dL (74-106)
[2022-08-17 07:55] VITALS: BP 95/59; PULSE 60; RESP 18; TEMP 37.2; O2SAT 95
[2022-08-17 08:09] VITALS: O2SAT 95
--- NOTE | 2022-08-17 08:31 | PCM.PN.HOSP ---
Subjective Subjective Follow-up lumbar laminectomy and decompression Patient is a 67-year-old gentleman with history of chronic low back pain with spinal stenosis and bilateral lower extremity radiculopathy who underwent lumbar laminectomy and decompression of L3-4, L4-5. The hospitalist service was consulted to assist with management of patient medical comorbidities. Objective Data Objective Data Vital Signs: Vital Signs Temp Pulse Resp BP Pulse Ox O2 Del Method O2 Flow Rate 98.9 F 60 18 95/59 L 95 Room Air 2 08/17/22 07:55 08/17/22 07:55 08/17/22 07:55 08/17/22 07:55 08/17/22 08:09 08/17/22 08:09 08/17/22 03:00 Oxygen Flow Rate (L/min) 2 Oxygen Delivery Method Room Air Weight: 95.254 kg Body Mass Index (BMI) 31.0 Intake & Output: Intake and Output for Last 24 Hours 08/15/22 08/16/22 08/17/22 23:59 23:59 23:59 Intake Total 2889.17 / 2889.17 2155 / 2155 Output Total 483 / 483 2170 / 2170 Balance 2406.17 / 2406.17 -15 / -15 Lab / Micro Data Result Diagrams: 08/06/22 09:31 08/06/22 09:31 Labs: Laboratory Results - last 24 hr 08/16/22 11:32: POC Glucose 159 H 08/16/22 16:48: POC Glucose 181 H 08/16/22 22:14: POC Glucose 180 H 08/17/22 06:34: POC Glucose 135 H Micro: Microbiology 08/06/22 09:31 Swab (Method) Nasal Screen MRSA/MSSA - Final Radiography Diagnostic Testing: Radiology Impression Spine X-Ray 08/16/22 08:55 IMPRESSION: The localization instrument is seen posterior to the L5-S1 disc space level. Electronically Signed: Og Yañez MD at 8:12 EST , Spine X-Ray 08/16/22 09:00 IMPRESSION: The localization instrument is seen posterior to the L4-L5 disc space level. Electronically Signed: Og Yañez MD at 11:01 EST , Physical Exam Narrative GENERAL: cooperative HEENT: Atraumatic; normocephalic EYES; Anicteric, Normal Conjunctiva NECK; supple, normal thyroid, RESPIRATORY: Diminished to auscultation CARDIOVASCULAR: Regular S1 S2, GI: soft, normoactive bowel sounds, : No Renal angle tenderness; EXTREMITIES: No edema, no clubbing, MUSCULOSKELETAL: no muscle wasting NEURO: Awake; no lateralizing signs. SKIN: No Rash PSYCH; Flat affect Assessment & Plan Assessment/Plan (1) Spinal stenosis of lumbar region with radiculopathy: PLAN: Plan Patient is a 67-year-old gentleman with history of chronic low back pain with spinal stenosis and bilateral lower extremity radiculopathy who underwent lumbar laminectomy and decompression of L3-4, L4-5. The hospitalist service was consulted to assist with management of patient medical comorbidities. 1. Status postlumbar laminectomy and decompression of L3-4, L4-5 On 08/16/[address] Mata. Reason for surgery was chronic low back pain with spinal stenosis and associated bilateral lower extremity radiculopathy having failed conservative management. Patient postoperative orders regarding pain management PT OT DVT prophylaxis deferred to primary service 2. Hypertension - Blood pressure controlled amlodipine and HCTZ/lisinopril did continue with plans to adjust doses if needed 3. Diabetes mellitus type 2 ? Apparently managed with diet patient was placed on Accu-Cheks before meals and at bedtime with sliding scale coverage 4. Class I obesity with BMI of 31.0 ? Weight loss advised 5. Depression with anxiety ? Patient is on paroxetine did continue 6. DVT prophylaxis ? Defer to primary service Total time spent on patient; 36 minutes Charges/Coding Visit Charges Inpatient E&M: 17449 Subs Hosp L2
[2022-08-17] MEDS: hydroCHLOROthiazide 25 MG Tablet PO (09:57)
[2022-08-17] MEDS: Lisinopril 20 MG Tablet PO (09:57)
[2022-08-17] MEDS: amLODIPine 5 MG Tablet PO (09:57)
[2022-08-17] MEDS: Paroxetine 20 MG Tablet 40 MG PO (09:57)
--- NOTE | 2022-08-17 11:22 | PCM.PN.ORT ---
Subjective Subjective Postop day #1. Patient is seen on rounds. He has been up and walking and he reports that all his leg pain when walking on the hallway is gone. Still has quite a bit of drainage in the Hemovac and he had quite a bit of blood loss yesterday so we will keep it in 1 more day. Probably remove it tomorrow and he will be able to go home. His dressing is dry and neurologically is intact in both lower extremities. Progress is satisfactory. Objective Data Objective Data Vital Signs: Vital Signs Temp Pulse Resp BP Pulse Ox O2 Del Method O2 Flow Rate 98.9 F 60 18 95/59 L 95 Room Air 2 08/17/22 07:55 08/17/22 07:55 08/17/22 07:55 08/17/22 07:55 08/17/22 08:09 08/17/22 08:09 08/17/22 03:00 Oxygen Flow Rate (L/min) 2 Oxygen Delivery Method Room Air Weight: 210 lb Body Mass Index (BMI) 31.0 Intake & Output: Intake and Output for Last 24 Hours 08/15/22 08/16/22 08/17/22 23:59 23:59 23:59 Intake Total 2889.17 / 2889.17 2155 / 2155 Output Total 483 / 483 2170 / 2170 Balance 2406.17 / 2406.17 -15 / -15 Lab / Micro Data Result Diagrams: 08/06/22 09:31 08/06/22 09:31 Labs: Laboratory Results - last 24 hr 08/16/22 11:32: POC Glucose 159 H 08/16/22 16:48: POC Glucose 181 H 08/16/22 22:14: POC Glucose 180 H 08/17/22 06:34: POC Glucose 135 H Micro: Microbiology 08/06/22 09:31 Swab (Method) Nasal Screen MRSA/MSSA - Final Radiography Diagnostic Testing: Radiology Impression Spine X-Ray 08/16/22 08:55 IMPRESSION: The localization instrument is seen posterior to the L5-S1 disc space level. Electronically Signed: Og Yañez MD at 8:12 EST , Spine X-Ray 08/16/22 09:00 IMPRESSION: The localization instrument is seen posterior to the L4-L5 disc space level. Electronically Signed: Og Yañez MD at 11:01 EST ,
[2022-08-17 12:30] LABS: Bedside Glucose 129 mg/dL (74-106)
--- NOTE | 2022-08-17 13:45 | CASEMGMT ---
ADRIANA XAVIER Assessment: Face to Face with pt for initial transition planning/care coordination assessment. RN DUC introduced self and role at [facility], pt voices understanding and consents to assessment. Pt is A/O x4 and answers all questions appropriately at this time. Pt sitting in chair in no distress with at bedside. Care providers, pharmacy, and demographics verified/updated. Admitting Dx: lumbar laminectomy decompression L4-5 and L3-4 PCP:Anne Specialists:Adolfo, BELLE Preferred Pharmacy: [facility] Insurance: [employer], MMO Prescription Benefit: yes LNOK: Fara Matt, Living Arrangements: Pt lives with and son in a two story home with 3 steps to enter. Pt reports he is I in ADL's and denies concerns at home. Transportation: Pt drives self and denies concerns with transportation. Pt can transport pt until he is able to drive. DME/HHC/SNF: Pt has a cane at home. Pt denies hx of HHC or SNF stays. Pt states no concerns with going home at time of dc. Pt ambulating halls with FWW. Provided pt with a verbal local in network list of DME companies, pt chose [employer]. Pt states no further concerns/needs. CM to follow. Advised pt to ask CM if any further question/concerns/needs arise, voices understanding. Pt Goal: Home Plan: Home with FWW.
[2022-08-17 14:04] VITALS: BP 99/68; PULSE 62; RESP 18; TEMP 37.1; O2SAT 93
[2022-08-17 17:05] LABS: Bedside Glucose 124 mg/dL (74-106)
[2022-08-17 18:18] VITALS: BP 93/53; PULSE 61; RESP 18; TEMP 36.6; O2SAT 93
[2022-08-17 20:52] VITALS: BP 102/64; PULSE 96; RESP 18; TEMP 36.4; O2SAT 58
[2022-08-17] MEDS: 0.9% Saline Lock 10 ML Syringe IV (21:04)
[2022-08-17 21:31] LABS: Bedside Glucose 137 mg/dL (74-106)
[2022-08-18 05:59] VITALS: BP 101/56; PULSE 57; RESP 18; TEMP 36.8; O2SAT 92
[2022-08-18] MEDS: Acetaminophen 500 MG Tablet 1000 MG PO ×2 (06:10→13:09)
[2022-08-18 07:01] LABS: Bedside Glucose 112 mg/dL (74-106)
[2022-08-18] MEDS: oxyCODONE 5 MG Tablet PO (08:02)
[2022-08-18] MEDS: Ensure Surgery 237 ML LIQUID PO ×2 (08:03→13:09)
[2022-08-18] MEDS: Paroxetine 20 MG Tablet 40 MG PO (08:03)
[2022-08-18 08:25] VITALS: BP 99/54; PULSE 58; RESP 16; TEMP 36.7; O2SAT 94
[2022-08-18 08:36] VITALS: O2SAT 97
--- NOTE | 2022-08-18 09:03 | PCM.PN.HOSP ---
Subjective Subjective Follow-up hypertension Patient seen participating physical therapy. Patient blood pressure low this a.m. with systolic of 99 and diastolic of 54. His a.m. antihypertensive medications held Objective Data Objective Data Vital Signs: Vital Signs Temp Pulse Resp BP Pulse Ox O2 Del Method O2 Flow Rate 98.1 F 58 L 16 99/54 L 94 Room Air 2 08/18/22 08:25 08/18/22 08:25 08/18/22 08:25 08/18/22 08:25 08/18/22 08:25 08/18/22 08:25 08/17/22 03:00 Oxygen Flow Rate (L/min) 2 Oxygen Delivery Method Room Air Weight: 95.254 kg Body Mass Index (BMI) 31.0 Intake & Output: Intake and Output for Last 24 Hours 08/16/22 08/17/22 08/18/22 23:59 23:59 23:59 Intake Total 2889.17 / 2889.17 3013.33 / 3013.33 200 / 200 Output Total 483 / 483 2545 / 2545 20 / 20 Balance 2406.17 / 2406.17 468.33 / 468.33 180 / 180 Lab / Micro Data Result Diagrams: 08/06/22 09:31 08/06/22 09:31 Labs: Laboratory Results - last 24 hr 08/17/22 11:45: POC Glucose 129 H 08/17/22 16:33: POC Glucose 124 H 08/17/22 21:00: POC Glucose 137 H 08/18/22 06:02: POC Glucose 112 H Micro: Microbiology 08/06/22 09:31 Swab (Method) Nasal Screen MRSA/MSSA - Final Physical Exam Narrative GENERAL: cooperative HEENT: Atraumatic; normocephalic EYES; Anicteric, Normal Conjunctiva NECK; supple, normal thyroid, RESPIRATORY: Diminished to auscultation CARDIOVASCULAR: Regular S1 S2, GI: soft, normoactive bowel sounds, : No Renal angle tenderness; EXTREMITIES: No edema, no clubbing, MUSCULOSKELETAL: no muscle wasting NEURO: Awake; no lateralizing signs. SKIN: No Rash PSYCH; Flat affect Assessment & Plan Assessment/Plan (1) Spinal stenosis of lumbar region with radiculopathy: PLAN: Plan Patient is a 67-year-old gentleman with history of chronic low back pain with spinal stenosis and bilateral lower extremity radiculopathy who underwent lumbar laminectomy and decompression of L3-4, L4-5. The hospitalist service was consulted to assist with management of patient medical comorbidities. 1. Status postlumbar laminectomy and decompression of L3-4, L4-5 On 08/16/[address] Mata. Reason for surgery was chronic low back pain with spinal stenosis and associated bilateral lower extremity radiculopathy having failed conservative management. Patient postoperative orders regarding pain management PT OT DVT prophylaxis deferred to primary service 2. Hypertension - Blood pressure controlled amlodipine and HCTZ/lisinopril did continue with plans to adjust doses if needed ? 08/18/2021. Patient amlodipine, lisinopril and HCTZ held in view of low blood pressure 3. Diabetes mellitus type 2 ? Apparently managed with diet patient was placed on Accu-Cheks before meals and at bedtime with sliding scale coverage 4. Class I obesity with BMI of 31.0 ? Weight loss advised 5. Depression with anxiety ? Patient is on paroxetine did continue 6. DVT prophylaxis ? Defer to primary service Total time spent on patient; 36 minutes Charges/Coding Visit Charges Inpatient E&M: 70529 Subs Hosp L2
[2022-08-18 11:10] VITALS: BP 94/54; PULSE 63; RESP 16; TEMP 36.4; O2SAT 96
[2022-08-18 11:46] LABS: Bedside Glucose 141 mg/dL (74-106)
--- NOTE | 2022-08-18 13:03 | DS.PCM_ITS ---
Providers Date of Admission: 08/17/22 Primary Care Physician: Dr. Sam Rodríguez MD Attending Physician: This is discharge summary on . This patient was admitted on Tuesday 2 days ago and underwent lumbar laminectomy at 2 levels that morning. Today I rem leoncio his drain and change his dressing. The incision is dry and healing well. He relates that his bilateral leg pain is completely resolved. Neurologically he is intact. Him and his are given directions regarding his activity care of his wound etc. He already has an appointment to see me in 14 days. I gave him oxycodone/acetaminophen 5-325 for pain control. This is the end of discharge summary on Delvin Matt. This is Dr. Mata dictating. Consultations 08/16/22 13:17 Consult: Hospitalist Routine Consulting Provider: Babs Awad Reason for Consult: Medical Management EMERGENT Consult: No MD Notified: Yes Date Notified: 08/16/22 Time Notified: 15:18 Method of Notification: Text Reason For Visit: LUMBAR LAMINECTOMY DECOMPRESSION L4-5 AND L3-4 Diagnosis Discharge Diagnosis (1) Spinal stenosis of lumbar region with radiculopathy: Status: Acute Code(s): M48.061 - Spinal stenosis, lumbar region without neurogenic claudication; M54.16 - Radiculopathy, lumbar region Medications at Discharge Home Medications glimepiride 1 mg tablet 1 mg PO DAILY 08/29/20 paroxetine HCl 40 mg tablet (Paxil) 40 mg PO DAILY 08/29/20 cetirizine 10 mg tablet 10 mg PO DAILY PRN ALLERGIES 01/22/22 meloxicam 15 mg tablet 15 mg PO DAILY 01/22/22 amlodipine 5 mg tablet 5 mg PO DAILY 08/03/22 lisinopril 20 mg-hydrochlorothiazide 25 mg tablet 1 tab PO DAILY 08/03/22 oxycodone-acetaminophen 5 mg-325 mg tablet 1 tab PO Q6H PRN pain 10 days #40 tab s 08/18/22 Weight / BMI Weight Weight: 210 lb Body Mass Index (BMI) 31.0 ABG / Lab / Microbiology Data Result Diagrams: 08/06/22 09:31 08/06/22 09:31 Laboratory: Laboratory Results - last 24 hr 08/17/22 16:33: POC Glucose 124 H 08/17/22 21:00: POC Glucose 137 H 08/18/22 06:02: POC Glucose 112 H 08/18/22 11:08: POC Glucose 141 H Microbiology: Microbiology 08/06/22 09:31 Swab (Method) Nasal Screen MRSA/MSSA - Final D/C Instructions May shower in (days): 4 May resume sexual activity in: 10-14 days Weight Bearing Status: Full weight bearing Meaningful Use Info Meaningful Use Diagnoses (Choose all that apply): None applicable Discharge Plan Admission Admit Date/Time: 08/17/22 13:32 Primary Reason for Your Visit: back surgery Attending Provider: Daquan Mata Primary Care Provider: Sam Rodríguez Consulting Providers: Babs Awad Discharge Orders/Prescriptions Prescriptions: No Action paroxetine HCl [Paxil] 40 mg tablet 40 mg PO DAILY glimepiride 1 mg tablet 1 mg PO DAILY meloxicam 15 mg tablet 15 mg PO DAILY cetirizine 10 mg tablet 10 mg PO DAILY PRN (Reason: ALLERGIES) amlodipine 5 mg Tablet 5 mg PO DAILY lisinopril-hydrochlorothiazide 20-25 mg Tablet 1 tab PO DAILY oxycodone-acetaminophen 5-325 mg tablet 1 tab PO Q6H PRN (Reason: pain) 10 Days Qty: 40 0RF Referrals / Follow Up: Sam Rodríguez MD [Primary Care Provider] - Disposition Disposition (needs filled in before D/C Order can be placed): Home, Self Care
--- NOTE | 2022-08-18 13:50 | CASEMGMT ---
Referral to [facility] sent via [facility] for FWW, pt ready for dc today.
== END 2022-08-18 14:48 | disposition home or self-care (01) | DRG 517 ==
LOC: SDC 14:40 → MS3 14:40
PROVIDERS: Anesthesiology; Admitting Provider Orthopaedic Surgery; PCP Family Medicine; Visit Provider Orthopaedic Surgery
PROC: (CPT 63030; principal; 2022-08-16 07:00)
DX: M48.061 Spinal stenosis, lumbar region without neurogenic claudication (principal); E11.9 Type 2 diabetes mellitus without complications; F41.9 Anxiety disorder, unspecified; M54.16 Radiculopathy, lumbar region; E78.00 Pure hypercholesterolemia, unspecified; I10 Essential (primary) hypertension; G43.709 Chronic migraine without aura, not intractable, without status migrainosus; G89.29 Other chronic pain; F32.A Depression, unspecified; E66.9 Obesity, unspecified; Z68.31 Body mass index [BMI] 31.0-31.9, adult; Z79.84 Long term (current) use of oral hypoglycemic drugs; Z79.899 Other long term (current) drug therapy; Z86.73 Personal history of transient ischemic attack (TIA), and cerebral infarction without residual deficits; Z87.891 Personal history of nicotine dependence
CPT/HCPCS: 36415; 72020; 80048; 82962; 83036; 83735; 85025; 86703; 86706; 86708; 86803; 87081; 93005; 94762; 97161; 97530; 99252; J7120; A4216; G0463; J2405; J3475

== ENCOUNTER → 2023-05-04 | Outpatient (CLI) | payer MEDICARE, OTHER, SELFPAY ==
[2023-05-04 13:14] LABS: Anion Gap 6 (5-15); BUN 12 mg/dL (7-18); BUN/Creat Ratio 12.6 RATIO (10-20); Calcium,Total 8.6 mg/dL (8.5-10.1); Chloride 111 mmol/L (98-107); Cholesterol 161 mg/dL (200); Creatinine, Serum 0.95 mg/dL (0.70-1.30); EST Glomerular Filtration Rate 84 mL/min (>60); Est Glom Filt Rate - Afr Amer 101 mL/min (>60); Glucose 131 mg/dL (74-106); High Density Lipoprotein 41 mg/dL; Potassium 3.5 mmol/L (3.5-5.1); Sodium Level 141 mmol/L (136-145); Triglycerides 406 mg/dL
== END | disposition home or self-care (01) ==
LOC: MFPLAB 11:07
PROVIDERS: PCP Family Medicine; Visit Provider Family Medicine
DX: E11.9 Type 2 diabetes mellitus without complications (principal)
CPT/HCPCS: 36415; 80048; 80061

== ENCOUNTER 2023-05-12 12:19 | Outpatient (CLI) | payer MEDICARE, OTHER, SELFPAY ==
--- NOTE | 2023-05-12 | IMM_PTH ---
PATIENT: FAUSTINO CORRAL LOC: [facility] U#:[id number] AGE/SX: 67/M ROOM: RE05/12/[address]: Dr. Sam Rodríguez MD : 1955 BED: DIS: 05/12/2023 SPEC #: [id number] RECD: 05/13/23 13:24 STATUS: SHANEKA NAN #: [id number] HEMAL: 05/12/23 00:[address]: Sam Rodríguez DEPT: IMMUNOHISTOCHEMISTRY RECD BY: Toña Presley Tissues: Skin of upper extremity and shoulder Procedures: CK5-6 (add) MELAN-A (initial) P40 (add) S-100 (add) PHYSICIAN & INSTITUTION [place] [id number] SPECIMEN INFORMATION: Tissue Source: Skin of right shoulder Clinical Info: Neoplasm Specimen Number: [id number] CPT code: 18784, 02054 x3 METHODOLOGY: Deparaffinized sections of prefer/formalin-fixed tissue or PAP/DQ stained slides are incubated with monoclonal/polyclonal antibodies/oligonucleotide probes. Localization is made via biotin free immunoperoxidase method. Appropriate controls are performed and reacted as expected. Results on target cell population are indicated in the following table: RESULTS: ANTIBODY / CLONE RESULT Melan A (A103) positive S-100 (4C4.9) positive CK5-6 (D5 & 1684) negative, rare P40 (BC28) negative These tests were developed and their performance characteristics determined by [facility]. They may not have been cleared or approved by the [place]. Food and Drug Administration. The FDA has determined that such clearance or approval is not necessary. The above immunohistochemical/dualISH markers are ordered and reviewed by the Pathologist. INTERPRETATION: Skin of right shoulder, excision: Malignant melanoma. AM:juan 05/20/2023
--- NOTE | 2023-05-12 10:00 | LES_PTH ---
PATIENT: FAUSTINO CORRAL LOC: [facility] U#:[id number] AGE/SX: 67/M ROOM: RE05/12/[address]: Dr. Sam Rodríguez MD : 1955 BED: DIS: 05/12/2023 SPEC #: [id number] RECD: 05/12/23 12:05 STATUS: SHANEKA NAN #: [id number] HEMAL: 05/12/23 10:[address]: Sam Rodríguez DEPT: SURGICAL PATHOLOGY RECD BY: June Seals Tissues: Skin of upper extremity and shoulder Procedures: Gen Path Consultation (on slides) Surgery Specimen Level IV HEADER OPERATION: Excision right shoulder PRE-OP DIAGNOSIS: Neoplasm TISSUE SUBMITTED: Right shoulder MICROSCOPIC DIAGNOSIS Skin lesion of right shoulder, biopsy: Malignant melanoma. See comment. AM:juan 05/20/2023 COMMENT This case was sent in consultation to [facility] and reviewed by Dr. Johnson Nation. The specifics of the synoptic report read: Breslow thickness: 0.4 mm Ulceration: Absent Mitosis/mm2: Not identified Tumor infiltrating lymphocytes: Absent Regression: Present Perineural invasion: Absent Vascular invasion: Absent Satellite nodules: Absent Margin status: Lateral: Positive for melanoma in situ. Deep: Negative The complete report is viewable in EMR. Immunohistochemistry ([id number]) supports the above diagnosis. Case has been reviewed in consultation with Dr. Perez who concurs with the above diagnosis. IDC:SJ MICROSCOPIC DESCRIPTION Slides are reviewed. GROSS DESCRIPTION Received is one container labeled with the patient's name and not further designated. The specimen consists of a piece of ventura-brown skin measuring 1.5 x 1.0 x 0.2 cm. The specimen is inked, serially sectioned and submitted entirely in one cassette. / CINDY:juan 05/12/2023 TC:0 CPT: 85809
== END 2023-05-12 23:59 | disposition home or self-care (01) ==
LOC: LABSPEC 12:23
PROVIDERS: PCP Family Medicine; Referring Provider Family Medicine; Visit Provider Family Medicine
DX: C43.62 Malignant melanoma of left upper limb, including shoulder (principal)
CPT/HCPCS: 88305; 88325; 88341; 88342

== ENCOUNTER → 2023-10-27 | Outpatient (CLI) | payer MEDICARE, OTHER, SELFPAY ==
[2023-10-27 12:49] LABS: ALB/GLOB Ratio 1.5 RATIO (0.9-2.4); AST(SGOT) 32 U/L (15-37); Alanine Aminotransfer ALT/SGPT 39 U/L (16-61); Alkaline Phosphatase 98 U/L (45-117); Anion Gap 7 (5-15); BUN 12 mg/dL (7-18); BUN/Creat Ratio 12.2 RATIO (10-20); Calcium,Total 9.1 mg/dL (8.5-10.1); Chloride 107 mmol/L (98-107); Cholesterol 161 mg/dL (200); Creatinine, Serum 0.98 mg/dL (0.70-1.30); EST Glomerular Filtration Rate 80 mL/min (>60); Est Glom Filt Rate - Afr Amer 97 mL/min (>60); Globulin 2.7 g/dL (2.2-4.2); Glucose 116 mg/dL (74-106); High Density Lipoprotein 43 mg/dL; Potassium 3.2 mmol/L (3.5-5.1); Protein, Total 6.7 g/dL (6.4-8.2); Sodium Level 143 mmol/L (136-145); Triglycerides 364 mg/dL; Very Low Density Lipoprotein 73 mg/dL (5-40)
== END | disposition home or self-care (01) ==
LOC: MFPLAB 10:47
PROVIDERS: PCP Family Medicine; Visit Provider Family Medicine
DX: E11.9 Type 2 diabetes mellitus without complications (principal)
CPT/HCPCS: 36415; 80053; 80061

== ENCOUNTER → 2024-01-25 | Outpatient (CLI) | payer MEDICARE, OTHER, SELFPAY ==
[2024-01-25 13:29] LABS: ALB/GLOB Ratio 1.5 RATIO (0.9-2.4); AST(SGOT) 32 U/L (15-37); Alanine Aminotransfer ALT/SGPT 48 U/L (16-61); Albumin, Serum 3.8 g/dL (3.2-5.0); Alkaline Phosphatase 117 U/L (45-117); Anion Gap 10 (5-15); BUN 11 mg/dL (7-18); BUN/Creat Ratio 12.6 RATIO (10-20); Calcium,Total 8.9 mg/dL (8.5-10.1); Chloride 110 mmol/L (98-107); Creatinine, Serum 0.88 mg/dL (0.70-1.30); EST Glomerular Filtration Rate 92 mL/min (>60); Est Glom Filt Rate - Afr Amer 111 mL/min (>60); Globulin 2.5 g/dL (2.2-4.2); Glucose 137 mg/dL (74-106); Potassium 3.5 mmol/L (3.5-5.1); Protein, Total 6.3 g/dL (6.4-8.2); Sodium Level 144 mmol/L (136-145)
== END | disposition home or self-care (01) ==
LOC: MFPLAB 10:53
PROVIDERS: PCP Family Medicine; Visit Provider Family Medicine
DX: E11.9 Type 2 diabetes mellitus without complications (principal)
CPT/HCPCS: 36415; 80053

== ENCOUNTER → 2024-05-21 | Outpatient (CLI) | payer MEDICARE, OTHER, SELFPAY ==
[2024-05-21 11:15] LABS: Hemoglobin A1c 6.2 % (3.8-5.6)
[2024-05-21 11:21] LABS: ALB/GLOB Ratio 1.5 RATIO (0.9-2.4); AST(SGOT) 42 U/L (15-37); Alanine Aminotransfer ALT/SGPT 70 U/L (16-61); Albumin, Serum 3.8 g/dL (3.2-5.0); Alkaline Phosphatase 119 U/L (45-117); Anion Gap 6 (5-15); BUN 12 mg/dL (7-18); BUN/Creat Ratio 12.1 RATIO (10-20); Chloride 108 mmol/L (98-107); Cholesterol 222 mg/dL (200); Creatinine, Serum 0.99 mg/dL (0.70-1.30); EST Glomerular Filtration Rate 80 mL/min (>60); Est Glom Filt Rate - Afr Amer 96 mL/min (>60); Globulin 2.6 g/dL (2.2-4.2); Glucose 147 mg/dL (74-106); High Density Lipoprotein 40 mg/dL; Protein, Total 6.4 g/dL (6.4-8.2); Sodium Level 140 mmol/L (136-145); Triglycerides 395 mg/dL; Very Low Density Lipoprotein 79 mg/dL (5-40)
[2024-05-21 11:50] LABS: Microalbumin,Random Urine 23.5 mg/L (NO RANGE EST.); Microalbumin:Creatinine Ratio 14.3 mg/g CRE (<30 mg/g CRE)
== END | disposition home or self-care (01) ==
LOC: MFPLAB 09:32
PROVIDERS: PCP Family Medicine; Visit Provider Family Medicine
DX: I10 Essential (primary) hypertension (principal); E11.9 Type 2 diabetes mellitus without complications; R53.83 Other fatigue
CPT/HCPCS: 36415; 80053; 80061; 82043; 82570; 83036; 84403; 84443

== ENCOUNTER → 2024-07-20 | Outpatient (CLI) | payer MEDICARE, OTHER, SELFPAY ==
[2024-07-20 10:06] LABS: Absolute Lymphocyte Count 1.02 X10^3/uL (0.83-4.51); Absolute Neutrophil Count 3.5 X10^3/uL (2.0-7.7); Basophil# 0.03 X10^3/uL; Basophil% 0.6 % (0-1); Eosinophil# 0.14 X10^3/uL; Eosinophils% 2.7 % (0-5); Hematocrit 45.5 % (40-54); Hemoglobin 15.6 g/dL (13.0-16.5); Lymphocyte # 1.02 X10^3/ul (0.83-4.51); Lymphocyte % 19.5 % (19-41); Mean Corp Hgb Conc 34.3 g/dL (32-36); Mean Corpuscular Hgb 31.8 pg (27.0-32.0); Mean Corpuscular Volume 92.9 fL (80-94); Mean Platelet Vol. 11.2 fl (6.2-12.0); Monocyte# 0.52 X10^3/uL; Monocyte% 9.9 % (0-10); NRBC Flagged by Analyzer 0 % (0-5); Neutrophil # 3.51 X10^3/uL (2.7-7.7); Neutrophil % 66.9 % (47-70); Platelet Count 144 K/mm3 (150-450); RBC Distribution Width CV 13.4 % (11.6-14.6); White Blood Count 5.2 K/mm3 (4.4-11.0)
[2024-07-20 10:56] LABS: PSA,Total - Annual Screen 1.89 ng/mL (0.00-4.00)
== END | disposition home or self-care (01) ==
LOC: MFPLAB 09:30
PROVIDERS: PCP Family Medicine; Referring Provider Family Medicine; Visit Provider Family Medicine
DX: E29.1 Testicular hypofunction (principal); Z12.5 Encounter for screening for malignant neoplasm of prostate
CPT/HCPCS: 36415; 84153; 84403; 85025; G0103

== ENCOUNTER → 2024-10-19 | Outpatient (CLI) | payer MEDICARE, OTHER, SELFPAY ==
[2024-10-19 10:20] LABS: Absolute Lymphocyte Count 1.03 X10^3/uL (0.83-4.51); Absolute Neutrophil Count 3.8 X10^3/uL (2.0-7.7); Basophil# 0.04 X10^3/uL; Basophil% 0.7 % (0-1); Eosinophil# 0.16 X10^3/uL; Eosinophils% 2.8 % (0-5); Hematocrit 48.1 % (40-54); Hemoglobin 16.7 g/dL (13.0-16.5); Lymphocyte # 1.03 X10^3/ul (0.83-4.51); Lymphocyte % 18.3 % (19-41); Mean Corp Hgb Conc 34.7 g/dL (32-36); Mean Corpuscular Hgb 31.7 pg (27.0-32.0); Mean Corpuscular Volume 91.4 fL (80-94); Mean Platelet Vol. 12.8 fl (6.2-12.0); Monocyte# 0.55 X10^3/uL; Monocyte% 9.8 % (0-10); NRBC Flagged by Analyzer 0 % (0-5); Neutrophil # 3.83 X10^3/uL (2.7-7.7); Platelet Count 141 K/mm3 (150-450); RBC Distribution Width CV 13.1 % (11.6-14.6); Red Blood Count 5.26 M/mm3 (4.6-6.2); White Blood Count 5.6 K/mm3 (4.4-11.0)
[2024-10-19 10:47] LABS: ALB/GLOB Ratio 2.1 RATIO (0.9-2.4); AST(SGOT) 34 U/L (<=37); Alanine Aminotransfer ALT/SGPT 36 U/L (<=46); Albumin, Serum 4.4 g/dL (3.4-4.8); Alkaline Phosphatase 123 U/L (40-129); Anion Gap 14 (5-15); BUN 19 mg/dL (4-19); BUN/Creat Ratio 18.5 RATIO (10-20); Calcium,Total 8.9 mg/dL (7.6-11.0); Carbon Dioxide 21.7 mmol/L (21.0-32.0); Chloride 106 mmol/L (98-108); Cholesterol 222 mg/dL (<=200); Creatinine, Serum 1.01 mg/dL (0.70-1.20); EST Glomerular Filtration Rate 80 (>60); Globulin 2.1 g/dL (2.2-4.2); Glucose 129 mg/dL (70-99); High Density Lipoprotein 34 mg/dL; Low Density Lipoprotein Calc. 102 mg/dL; PSA,Total- Diagnostic 1.31 ng/mL (0.00-4.00); Potassium 3.6 mmol/L (3.3-5.1); Protein, Total 6.5 g/dL (5.9-8.4); Sodium Level 141 mmol/L (133-145); Total Bilirubin 2.32 mg/dL (0.00-1.30); Triglycerides 426 mg/dL; Very Low Density Lipoprotein 85 mg/dL (5-40); cholesterol:hdl ratio screen 6.45
[2024-10-19 10:50] LABS: Hemoglobin A1c 6.6 % (<=5.6)
== END | disposition home or self-care (01) ==
LOC: MFPLAB 08:53
PROVIDERS: PCP Family Medicine; Referring Provider Family Medicine; Visit Provider Family Medicine
DX: E29.1 Testicular hypofunction (principal); E11.9 Type 2 diabetes mellitus without complications
CPT/HCPCS: 36415; 80053; 80061; 83036; 84153; 84402; 84403; 85025

== ENCOUNTER → 2025-02-18 | Outpatient (CLI) | payer MEDICARE, OTHER, SELFPAY ==
--- OUTSIDE RECORDS SUMMARY | 2025-02-18 11:44 | XMS RPT_ITS | CCD ---
Author Organization [facility] Care Team Providers Care Industrial Refrigeration Mechanic Name Role Phone Troy Dante Unavailable Unavailable Dante Simmons Unavailable Unavailable Anne, Dr. Vargas Primary Care Provider Anne, Dr. Vargas Referring Provider Dr. Daquan Mata Attending Provider [phone] Anne, Dr. Vargas Primary Care Provider Anne, Dr. Vargas Referring Provider Dr. Daquan Mata Attending Provider [phone] Daquan Mata Other Provider Dr. Daquan Mata Admit Provider Dr. Babs Awad Attending Provider Dr. Babs Awad Other Provider Dr. Aaron Wagner Attending Provider Unavailable FLETCHER GUIDRY Attending Unavaila ble SAM LUIS Primary Care Unavailable Luis, Sam Primary Care Unavailable Luis, Sam Attending Unavailable Luis, Sam Referring Unavailable Luis, Sam Primary Care Unavailable Luis, Sam Attending Unavailable Luis, Sam Attending Unavailable Luis, Sam Primary Care Unavailable Luis, Sam Attending Unavailable Luis, Sam Primary Care Unavailable Luis, Sam Referring Unavailable Luis, Sam Primary Care Unavailable Luis, Sam Attending Unavailable Luis , Dr. Vargas Primary Care Provider Anne GARZA, Dr. Vargas Attending Provider Anne GARZA, Dr. Vargas Referring Provider Allergies Allergy Classification Reported Allergen(s) Allergy Type Date of Onset Reaction(s) Facility (11 sources) Penicillins; Translations: [penicillins] Propensity to adverse reactions to drug (disorder) AOF, Upset Stomach [facility] Repository Medications Current Medications Medication Drug Class(es) Dates Sig (Normalized) Sig (Original) amLODIPine 5 mg oral tablet (4 sources) Dihydropyridine Calcium Channel Linda Start: 08-03-2022 take 1 tablet by mouth once daily Amlodipine 5 mg Tablet Active 5 mg PO DAILY August 03, 2022 1:00am cetirizine hydrochloride 10 mg oral tablet (6 sources) Histamine-1 Receptor Antagonist Start: 01-22-2022 take 1 tablet by mouth once daily as needed Cetirizine 10 mg tablet Active 10 mg PO DAILY as needed for ALLERGIES January 22, 2022 12:00am glimepiride 1 mg oral tablet (8 sources) Sulfonylurea Start: 08-29-2020 take 1 tablet by mouth once daily Glimepiride 1 mg tablet Active 1 mg PO DAILY August 29, 2020 1:00am hydroCHLOROthiazide 25 mg / lisinopril 20 mg oral tablet (4 sources) Thiazide Diuretic, Angiotensin Converting Enzyme Inhibitor Start: 08-03-2022 Lisinopril-Hydr ochlorothiazide 20-25 mg Tablet Active 1 {tbl} PO DAILY August 03, 2022 1:00am Start: 08-03-2022 take 1 tablet by trupti th once daily Lisinopril-Hydrochlorothiazide Active 1 TABLET PO DAILY August 03, 2022 1:00am PARoxetine hydrochloride 40 mg oral tablet (8 sources) Serotonin Reuptake Inhibitor Start: 08-29-2020 take 1 tablet by mouth once daily Paroxetine Hcl (Paxil) 40 mg tablet Active 40 mg PO DAILY August 29, 2020 1:00am simvastatin 20 mg oral tablet (2 sources) HMG-CoA Reductase Inhibitor Start: 01-22-2022 take 20 mg by mouth at bedtime Simvastatin Active 20 MG PO AT BEDTIME January 22, 2022 12:00am Completed/Discontinued Medications Medication Drug Class(es) Dates Sig (Normalized) Sig (Original) acetaminophen 325 mg / oxyCODONE hydrochloride 5 mg oral tablet (12 sources) Opioid Agonist Start: 08-18-2022 End: 08-28-2022 Oxycodone-Acetamino phen 5-325 mg tablet Discontinued 1 {tbl} PO EVERY 6 HOURS as needed for pain 40 August 18, 2022 August 273 1:00am August 28, 2022 1:10am Start: 08-18-2022 End: 08-28-2022 take 1 tablet by mouth every six hours Oxycodone-Acetaminophen Discontinued 1 TABLET PO EVERY 6 HOURS 40 10 August 18, 2022 August 28, 2022 1:10am Start: 09-05-2020 End: 09-12-2020 Oxycodone-Acetaminophen 1 EA CH tablet Discontinued 1 - 2 {tbl} PO EVERY 6 HOURS NEEDED as needed for Pain Score 4-10/10 50 7 September 05, 2020 September 11, 2020 1:00am September 12, 2020 1:03am Start: 09-05-2020 End: 09-12-2020 take 1 tablet by mouth every six hours as needed Oxycodone-Acetaminophen Discontinued 1 - 2 TABLET PO EVERY 6 HOURS NEEDED 50 7 September 05, 2020 September 12, 2020 1:03am aspirin 81 mg chewable tablet (8 sources) Platelet Aggregation Inhibitor, Nonsteroidal Anti-inflammatory Drug Start: 08-29-2020 End: 01-22-2022 take 1 tablet by mouth once daily Aspirin 81 mg tablet,chewable Discontinued 81 mg PO DAILY August 29, 2020 1:00am January 22, 2022 1:03pm docusate sodium 100 mg oral capsule (8 sources) Start: 09-05-2020 End: 01-22-2022 take 1 capsule by mouth twice daily Docusate Sodium 100 MG capsule Discontinued 100 mg PO TWICE A DAY September 05, 2020 1:00am January 22, 2022 1:02pm meloxicam 15 mg oral tablet (6 sources) Nonsteroidal Anti-inflammatory Drug Start: 01-22-2022 End: 09-03-2022 take 1 tablet by mouth once daily Meloxicam 15 mg tablet Discontinued 15 mg PO DAILY January 22, 2022 12:00am September 03, 2022 11:27am rosuvastatin calcium 10 mg oral tablet (8 sources) HMG-CoA Reductase Inhibitor Start: 08-29-2020 End: 01-22-2022 take 1 tablet by mouth once daily Rosuvastatin (Crestor) 10 mg tablet Discontinued 10 mg PO DAILY August 29, 2020 1:00am January 22, 2022 1:02pm 1 ml testosterone cypionate 200 mg/ml injection (8 sources) Androgen Start: 08-29-2020 End: 01-22-2022 inject 100 mg by intramuscular injection every other week Testosterone Cypionate (Depo-Testosterone ) 200 mg/mL oil Discontinued 100 mg IM every 2 weeks August 29, 2020 1:00am January 22, 2022 1:02pm Problems Problem Classification Problem Date Documented Date Episodic/Chronic Diabetes mellitus without complication (1 source) Type 2 diabetes mellitus without complications; Translations: [Type 2 diabetes mellitus without complications] Onset: 02-02-2024 Chronic E Codes: Fall (2 sources) Unspecified fall, initial encounter; Translations: [Unspecified fall, initial encounter] Onset: 07-06-2024 Episodic Essential hypertension (1 source) Essential (primary) hypertension; Translations: [Essential (primary) hypertension] Onset: 06-13-2024 Chronic Hemorrhoids (8 sources) Hemorrhoids; Translations: [Unspecified hemorrhoids] 09-24-2020 Episodic Other endocrine disorders (1 source) Testicular hypofunction; Translations: [Testicular hypofunction] Onset: 10-30-2024 Chronic Residual codes; unclassified (3 sources) H/O Spinal surgery; Translations: [Other specified postprocedural states] 09-03-2022 Episodic Spondylosis; intervertebral disc disorders; other back problems (16 sources) Spinal stenosis; Translations: [Spinal stenosis, site unspecified] Episodic Superficial injury; contusion (2 sources) Contusion of left elbow, initial encounter; Translations: [Contusion of left elbow, initial encounter] Onset: 07-06-2024 Episodic Results Test Name Value Interpretation Reference Range Facility Testosterone, Total / Freeon 11-02-2024 TESTOSTER,FREE TNP Normal . [facility] Comment on above: Order Comment: N Result Comment: Unab le to calculate result since non-numeric result obtained for component test. Performed By: #### L 501.9520, L3100.5320, L500.4100, L500.4050, L501.9985, L502.0250 #### [facility] [address] [place], [address] TESTOSTER,TOTAL 524 ng/dL Normal 264-916 [facility] Comment on above: Order Comment: N Result Comment: Adul t male reference interval is based on a population of healthy nonobese males (BMI <30) between 19 and 39 years old. jhon Major.al. JCEM 2017,102;2009-3321. PMID: [id number]. Performed By: #### L [id number], L3100.5320, L500.4100, L500.4050, L501.9985, L502.0250 #### [facility] [address] [place], [address] TESTOSTERONE,%F TNP Normal . [facility] Comment on above: Order Comment: N Result Comment: Test not performed. Unable to obtain result due to presence of unknown interfering substance(s). CONTACTED LORNA Hopson AT YOUR FACILITY ON 11-02-2024 Performed By: #### L [id number], L3100.5320, L500.4100, L500.4050, L501.9985, L502.0250 #### [facility] [address] [place], [place], [address] Absolute neutrophil countOrd ered By: Sam Luis on 10-19-2024 Neutrophils (Bld) [#/Vol] 3.8 10*3/uL 2.0-7.7 [facility] Anion gap in Serum or Plasma Ordered By: Sam Luis on 10-19-2024 Anion gap [Moles/Vol] 14 mmol/L 5-15 [facility] BUN/creatinine ratioOrdered By: Sam Luis on 10-19-2024 Urea nitrogen/Creatinine [Mass ratio] 18.5 mg/mg 10-20 [facility] Basophil percentageOrdered B y: Sam Luis on 10-19-2024 Basophils/100 WBC (Bld) 0.7 % 0-1 [facility] Bilirubin, totalOrdered By: Sam Luis on 10-19-2024 Bilirubin [Mass/Vol] 2.32 mg/dL High 0.00-1.30 [facility] CBC W/Diff, Automatedon 10-06 Absolute Lymph 1.03 X10 3/uL Normal 0.83-4.51 [facility] Comment on above: Performed By: #### L [id number], L3100.5320, L500.4100, L500.4050, L501.9985, L502.0250 #### [facility] [address] [place], [address] Absolute Neut 3.8 X10 3/uL Normal 2.0-7.7 [facility] Comment on above: Performed By: #### L [id number], L3100.5320, L500.4100, L500.4050, L501.9985, L502.0250 #### [facility] [address] [place], [address] Basophils/100 WBC (Bld) 0.7 % Normal 0-1 [facility] Comment on above: Performed By: #### L [id number], L3100.5320, L500.4100, L500.4050, L501.9985, L502.0250 #### [facility] [address] [place], [address] Eosinophils/100 WBC (Bld) 2.8 % Normal 0-5 [facility] Comment on above: Performed By: #### L [id number], L3100.5320, L500.4100, L500.4050, L501.9985, L502.0250 #### [facility] [address] [place], [address] Erythrocyte distribution width (RBC) [Ratio] 13.1 % Normal 11.6-14.6 [facility] Comment on above: Performed By: #### L 501.9520, L3100.5320, L500.4100, L500.4050, L501.9985, L502.0250 #### [facility] [address] [place], [address] Hematocrit (Bld) [Volume fraction] 48.1 % Normal 40-54 [facility] Comment on above: Performed By: #### L [id number], L3100.5320, L500.4100, L500.4050, L501.9985, L502.0250 #### [facility] [address] [place], [address] Hemoglobin (Bld) [Mass/Vol] 16.7 g/dL High 13.0-16.5 [facility] Comment on above: Performed By: #### L 501.9520, L3100.5320, L500.4100, L500.4050, L501.9985, L502.0250 #### [facility] [address] [place], [address] IG% 0.400 Normal 0.0-0.9 [facility] Comment on above: Result Comment: IG% - Immature Granulocytes (promyelocytes, myelocytes and metamyelocytes) > 1% indicates that a LEFT SHIFT is Present. Performed By: #### L 501.9520, L3100.5320, L500.4100, L500.4050, L501.9985, L502.0250 #### [facility] [address] [place], [address] Lymphocytes/100 WBC (Bld) 18.3 % Low 19-41 [facility] Comment on above: Performed By: #### L 501.9520, L3100.5320, L500.4100, L500.4050, L501.9985, L502.0250 #### [facility] [address] [place], [address] MCH (RBC) [Entitic mass] 31.7 pg Normal 27.0-32.0 [facility] Comment on above: Performed By: #### L 501.9520, L3100.5320, L500.4100, L500.4050, L501.9985, L502.0250 #### [facility] [address] [place], [address] MCHC (RBC) [Mass/Vol] 34.7 g/dL Normal 32-36 [facility] Comment on above: Performed By: #### L 501.9520, L3100.5320, L500.4100, L500.4050, L501.9985, L502.0250 #### [facility] [address] [place], [address] MCV (RBC) [Entitic vol] 91.4 fL Normal 80-94 [facility] Comment on above: Performed By: #### L 501.9520, L3100.5320, L500.4100, L500.4050, L501.9985, L502.0250 #### [facility] [address] [place], [address] Monocytes/100 WBC (Bld) 9.8 % Normal 0-10 [facility] Comment on above: Performed By: #### L 501.9520, L3100.5320, L500.4100, L500.4050, L501.9985, L502.0250 #### [facility] [address] [place], [address] Neutrophils/100 WBC (Bld) 68.0 % Normal 47-70 [facility] Comment on above: Performed By: #### L 501.9520, L3100.5320, L500.4100, L500.4050, L501.9985, L502.0250 #### [facility] [address] [place], [address] Nucleated RBC (Bld) [#/Vol] 0 10*3/uL Normal 0-5 [facility] Comment on above: Performed By: #### L 501.9520, L3100.5320, L500.4100, L500.4050, L501.9985, L502.0250 #### [facility] [address] [place], [address] Platelet mean volume (Bld) [Entitic vol] 12.8 fL High 6.2-12.0 [facility] Comment on above: Performed By: #### L 501.9520, L3100.5320, L500.4100, L500.4050, L501.9985, L502.0250 #### [facility] [address] [place], [address] Platelets (Bld) [#/Vol] 141 10*3/uL Low 150-450 [facility] Comment on above: Performed By: #### L 501.9520, L3100.5320, L500.4100, L500.4050, L501.9985, L502.0250 #### [facility] [address] [place], [address] RBC (Bld) [#/Vol] 5.26 10*6/uL Normal 4.6-6.2 [facility] Comment on above: Performed By: #### L 501.9520, L3100.5320, L500.4100, L500.4050, L501.9985, L502.0250 #### [facility] [address] [place], [address] RDW SD 43.0 fl Normal 35.1-43.9 [facility] Comment on above: Performed By: #### L 501.9520, L3100.5320, L500.4100, L500.4050, L501.9985, L502.0250 #### [facility] [address] [place], [address] WBC (Bld) [#/Vol] 5.6 10*3/uL Normal 4.4-11.0 [facility] Comment on above: Performed By: #### L 501.9520, L3100.5320, L500.4100, L500.4050, L501.9985, L502.0250 #### [facility] [address] [place], [place], [id number] Calculated very low density lipoprotein (VLDL) cholesterol measurementOrdered By: Sam Luis on 10-19-2024 VLDL Cholesterol 85 mg/dL High 5-40 [facility] Carbon dioxide, total [Moles /volume] in Central venous bloodOrdered By: aSm Luis on 10-19-2024 CO2 [Moles/Vol] 21.7 mmol/L 21.0-32.0 [facility] Chloride assayOrdered By: Sae Luis on 10-19-2024 Chloride [Moles/Vol] 106 mmol/L 98-108 [facility] Comprehensive Metabolic Prof ilon 10-19-2024 Albumin [Mass/Vol] 4.4 g/dL Normal 3.4-4.8 [facility] Comment on above: Performed By: #### L 501.9520, L3100.5320, L500.4100, L500.4050, L501.9985, L502.0250 #### [facility] [address], [place], [id number] Albumin/Globulin [Mass ratio] 2.1 {ratio} Normal 0.9-2.4 [facility] Comment on above: Performed By: #### L 501.9520, L3100.5320, L500.4100, L500.4050, L501.9985, L502.0250 #### [facility] [address] [place], [place], [id number] ALK PHOS 123 U/L Normal 40-129 [facility] Comment on above: Performed By: #### L 501.9520, L3100.5320, L500.4100, L500.4050, L501.9985, L502.0250 #### [facility] [address] [place], [place], [id number] ALT [Catalytic activity/Vol] 36 U/L Normal <=46 [facility] Comment on above: Performed By: #### L 501.9520, L3100.5320, L500.4100, L500.4050, L501.9985, L502.0250 #### [facility] [address] [place], [address] AST [Catalytic activity/Vol] 34 U/L Normal <=37 [facility] Comment on above: Performed By: #### L 501.9520, L3100.5320, L500.4100, L500.4050, L501.9985, L502.0250 #### [facility] [address] [place], [address] Bilirubin [Mass/Vol] 2.32 mg/dL High 0.00-1.30 [facility] Comment on above: Performed By: #### L 501.9520, L3100.5320, L500.4100, L500.4050, L501.9985, L502.0250 #### [facility] [address] [place], [address] BUN/CRE 18.5 RATIO Normal 10-20 [facility] Comment on above: Performed By: #### L 501.9520, L3100.5320, L500.4100, L500.4050, L501.9985, L502.0250 #### [facility] [address] [place], [address] Calcium [Mass/Vol] 8.9 mg/dL Normal 7.6-11.0 [facility] Comment on above: Performed By: #### L 501.9520, L3100.5320, L500.4100, L500.4050, L501.9985, L502.0250 #### [facility] [address] [place], [address] Chloride [Moles/Vol] 106 mmol/L Normal 98-108 [facility] Comment on above: Performed By: #### L 501.9520, L3100.5320, L500.4100, L500.4050, L501.9985, L502.0250 #### [facility] [address] [place], [address] CO2 [Moles/Vol] 21.7 mmol/L Normal 21.0-32.0 [facility] Comment on above: Performed By: #### L 501.9520, L3100.5320, L500.4100, L500.4050, L501.9985, L502.0250 #### [facility] [address] [place], [address] Creatinine [Mass/Vol] 1.01 mg/dL Normal 0.70-1.20 [facility] Comment on above: Performed By: #### L 501.9520, L3100.5320, L500.4100, L500.4050, L501.9985, L502.0250 #### [facility] [address] [place], [address] GAP 14 Normal 5-15 [facility] Comment on above: Performed By: #### L 501.9520, L3100.5320, L500.4100, L500.4050, L501.9985, L502.0250 #### [facility] [address] [place], [address] GFR/1.73 sq M.predicted among non-blacks MDRD (S/P/Bld) [Vol rate/Area] 80 mL/min/{1.73_m2} Normal >60 [facility] Comment on above: Result Comment: mL/m in/1.73m2 CKD-EPI Creatinine Equation (2020) Performed By: #### L 501.9520, L3100.5320, L500.4100, L500.4050, L501.9985, L502.0250 #### [facility] [address] [place], [address] Globulin (S) [Mass/Vol] 2.1 g/dL Low 2.2-4.2 [facility] Comment on above: Performed By: #### L 501.9520, L3100.5320, L500.4100, L500.4050, L501.9985, L502.0250 #### [facility] [address] [place], [address] Glucose [Mass/Vol] 129 mg/dL High 70-99 [facility] Comment on above: Performed By: #### L 501.9520, L3100.5320, L500.4100, L500.4050, L501.9985, L502.0250 #### [facility] [address] [place], [address] Potassium [Moles/Vol] 3.6 mmol/L Normal 3.3-5.1 [facility] Comment on above: Performed By: #### L 501.9520, L3100.5320, L500.4100, L500.4050, L501.9985, L502.0250 #### [facility] [address] [place], [address] Sodium [Moles/Vol] 141 mmol/L Normal 133-145 [facility] Comment on above: Performed By: #### L 501.9520, L3100.5320, L500.4100, L500.4050, L501.9985, L502.0250 #### [facility] [address] [place], [address] T PROT 6.5 g/dL Normal 5.9-8.4 [facility] Comment on above: Performed By: #### L 501.9520, L3100.5320, L500.4100, L500.4050, L501.9985, L502.0250 #### [facility] [address] [place], [address] Urea nitrogen [Mass/Vol] 19 mg/dL Normal 4-19 [facility] Comment on above: Performed By: #### L 501.9520, L3100.5320, L500.4100, L500.4050, L501.9985, L502.0250 #### [facility] [place], [address] Diagnostic total prostate sp ecific antigen (PSA) measurementOrdered By: Sam Luis on 10-19-2024 Prostate Specific Antigen Total 1.31 ng/mL 0.00-4.00 [facility] Comment on above: This test was perfor med using the [employer] tPSA method. Measured values of a patient sample can vary depending on the testing procedure used. PSA values determined on patient samples by different testing procedures cannot be used interchangeably. If there is a change in PSA assays while monitoring therapy, sequential testing should be performed to confirm baseline values. Eosinophil percentageOrdered By: Sam Luis on 10-19-2024 Eosinophils/100 WBC (Bld) 2.8 % 0-5 [facility] Erythrocyte distribution wid th ratioOrdered By: Sam Luis on 10-19-2024 Erythrocyte distribution width (RBC) [Ratio] 13.1 % 11.6-14.6 [facility] Erythrocyte distribution wid th standard deviationOrdered By: Sam Luis on 10-19-2024 Erythrocyte distribution width (RBC) [Entitic vol] 43.0 fL 35.1-43.9 [facility] GFR/1.73 sq M.predicted rene g non-blacks MDRD (S/P/Bld) [Vol rate/Area]Ordered By: Sam Luis on 10-19-2024 Estimated GFR (MDRD) Non-Af Amer 80 >60 [facility] Comment on above: mL/min/1.73m2 CKD-EP I Creatinine Equation (2020) Hematocrit Auto (Bld) [Volum e fraction]Ordered By: Sam Luis on 10-19-2024 Hematocrit (Bld) [Volume fraction] 48.1 % 40-54 [facility] Hemoglobin A1con 10-19-2024 HbA1c (Bld) [Mass fraction] 6.6 % Normal <=5.6 [facility] Comment on above: Performed By: #### L 501.9520, L3100.5320, L500.4100, L500.4050, L501.9985, L502.0250 #### [facility] [address] [place], [address] Hemoglobin A1c percentageOrd ered By: Sam Luis on 10-19-2024 HbA1c (Bld) [Mass fraction] 6.6 % >5.7 [facility] Hemoglobin measurementOrdere d By: Sam Luis on 10-19-2024 Hemoglobin (Bld) [Mass/Vol] 16.7 g/dL High 13.0-16.5 [facility] Immature granulocytes/100 WB C Auto (Bld)Ordered By: Sam Luis on 10-19-2024 Immature granulocytes/100 WBC (Bld) 0.400 % 0.0-0.9 [facility] Comment on above: IG% - Immature Granu locytes (promyelocytes, myelocytes and metamyelocytes) > 1% indicates that a LEFT SHIFT is Present. LDL calc ser/plasOrdered By: Sam Luis on 10-19-2024 LDL Cholesterol, Calculated 102 mg/dL [facility] Comment on above: Iccygehtdl=274-136 m g/dL & Higher Wizt=921 mg/dL or greater Laboratory - Chemistry and C hemistry - challengeOrdered By: aSm Luis on 10-19-2024 AST [Catalytic activity/Vol] 34 U/L <38 [facility] Lipid Profileon 10-19-2024 CHOL:HDL 6.45 Normal [facility] Comment on above: Performed By: #### L 501.9520, L3100.5320, L500.4100, L500.4050, L501.9985, L502.0250 #### [facility] [address] [place], [address] Cholesterol [Mass/Vol] 222 mg/dL High <=200 [facility] Comment on above: Result Comment: Chol esterol level, Desirable <200 mg/dL Borderline high cholesterol 200-239 mg/dL High cholesterol >=240 mg/dL Recommendations of the NCEP Adult Treatment Panel for the following risk-cutoff thresholds for the [place] population. Performed By: #### L 501.9520, L3100.5320, L500.4100, L500.4050, L501.9985, L502.0250 #### [facility] [address] [place], [address] Cholesterol in HDL [Mass/Vol] 34 mg/dL Low [facility] Comment on above: Result Comment: Fernanda onal Cholesterol Education Program (NCEP) guidelines: <40 mg/dL: Low HDL-cholesterol (major risk factor for CHD) >= 60 mg/dL: High HDL-cholesterol (negative risk factor for CHD) HDL-cholesterol is affected by a number of factors, e.g. smoking, exercise, hormones, sex and age. Performed By: #### L 501.9520, L3100.5320, L500.4100, L500.4050, L501.9985, L502.0250 #### [facility] Laboratory [address] [place], [address] Cholesterol in LDL [Mass/Vol] 102 mg/dL Normal [facility] Comment on above: Result Comment: Bord feoxax=796-170 mg/dL Higher Bttb=303 mg/dL or greater Performed By: #### L 501.9520, L3100.5320, L500.4100, L500.4050, L501.9985, L502.0250 #### [facility] Laboratory [address] [place], [address] Cholesterol in VLDL [Mass/Vol] 85 mg/dL High 5-40 [facility] Comment on above: Performed By: #### L 501.9520, L3100.5320, L500.4100, L500.4050, L501.9985, L502.0250 #### [facility] Laboratory [address] [place], [address] Triglyceride [Mass/Vol] 426 mg/dL High [facility] Comment on above: Result Comment: The drugs N-Acetylcysteine and Metamizole may falsely depress this assay. Normal range: <150 mg/dL Borderline High: 150-199 mg/dL High: 200-499 mg/dL Very High: >500 mg/dL Performed By: #### L 501.9520, L3100.5320, L500.4100, L500.4050, L501.9985, L502.0250 #### [facility] Laboratory [address] [place], [address] Lymphocytes Auto (Unsp spec) [#/Vol]Ordered By: Sam Luis on 10-19-2024 Lymphocytes (Bld) [#/Vol] 1.03 10*3/uL 0.83-4.51 [facility] Lymphocytes/100 WBC Auto (Un sp spec)Ordered By: Sam Luis on 10-19-2024 Lymphocytes/100 WBC (Bld) 18.3 % Low 19-41 [facility] MCV (mean corpuscular volume ) determinationOrdered By: Sam Luis on 10-19-2024 MCV (RBC) [Entitic vol] 91.4 fL 80-94 [facility] Mean corpuscular hemoglobin (MCH) determinationOrdered By: Sam Luis on 10-19-2024 MCH (RBC) [Entitic mass] 31.7 pg 27.0-32.0 [facility] Mean corpuscular hemoglobin concentration (MCHC) determinationOrdered By: Sma Luis on 10-19-2024 MCHC (RBC) [Mass/Vol] 34.7 g/dL 32-36 [facility] Mean platelet volume determi nationOrdered By: Sam Luis on 10-19-2024 Platelet mean volume (Bld) [Entitic vol] 12.8 fL High 6.2-12.0 [facility] Monocyte percentageOrdered B y: Sam Luis on 10-19-2024 Monocytes/100 WBC (Bld) 9.8 % 0-10 [facility] Neutrophil percentageOrdered By: Sam Luis on 10-19-2024 Neutrophils/100 WBC (Bld) 68.0 % 47-70 [facility] Nucleated red blood cell per centageOrdered By: Sam Luis on 10-19-2024 Nucleated RBC/100 WBC (Bld) [Ratio] 0 % 0-5 [facility] PSA,Total- Diagnosticon 10-06 PSA, DIAGNOSTIC 1.31 ng/mL Normal 0.00-4.00 [facility] Comment on above: Result Comment: This test was performed using the [employer] tPSA method. Measured values of a patient??sample can vary depending on the testing procedure used. PSA values determined on patient samples by different testing procedures cannot be used interchangeably. If there is a change in PSA assays while monitoring therapy, sequential testing should be performed to confirm baseline values. Performed By: #### L 501.9520, L3100.5320, L500.4100, L500.4050, L501.9985, L502.0250 #### [facility] Laboratory [address] [place], [place], [id number] Platelet countOrdered By: Sae Luis on 10-19-2024 Platelets (Bld) [#/Vol] 141 10*3/uL Low 150-450 [facility] Potassium (Unsp spec) [Mass/ Vol]Ordered By: Sam Luis on 10-19-2024 Potassium [Moles/Vol] 3.6 mmol/L 3.3-5.1 [facility] RBC Auto (Bld) [#/Vol]Ordere d By: Sam Luis on 10-19-2024 RBC (Bld) [#/Vol] 5.26 10*6/uL 4.6-6.2 [facility] Screening total cholesterol/ high density lipoprotein (HDL) cholesterol ratioOrdered By: Sam Luis on 10-19-2024 Cholesterol.total/Choles terol in HDL [Mass ratio] 6.45 {ratio} [facility] Serum creatinine measurement (mass/volume)Ordered By: Sam Luis on 10-19-2024 Creatinine [Mass/Vol] 1.01 mg/dL 0.70-1.20 [facility] Serum globulin measurementOr dered By: Sam Luis on 10-19-2024 Globulin (S) [Mass/Vol] 2.1 g/dL Low 2.2-4.2 [facility] Serum glucose measurement (m ass/volume)Ordered By: Sam Luis on 10-19-2024 Glucose [Mass/Vol] 129 mg/dL High 70-99 [facility] Serum or plasma alanine aceves otransferase (ALT) measurementOrdered By: Sam Luis on 10-19-2024 ALT [Catalytic activity/Vol] 36 U/L <47 [facility] Serum or plasma albumin suzan urement (mass/volume)Ordered By: Sam Luis on 10-19-2024 Albumin [Mass/Vol] 4.4 g/dL 3.4-4.8 [facility] Serum or plasma albumin/glob ulin mass ratioOrdered By: Sam Luis on 10-19-2024 Albumin/Globulin [Mass ratio] 2.1 {ratio} 0.9-2.4 [facility] Serum or plasma alkaline karien sphatase measurementOrdered By: Sam Luis on 10-19-2024 ALP [Catalytic activity/Vol] 123 U/L 40-129 [facility] Serum or plasma calcium suzan urement (mass/volume)Ordered By: Sam Luis on 10-19-2024 Calcium [Mass/Vol] 8.9 mg/dL 7.6-11.0 [facility] Serum or plasma cholesterol in HDL measurement (mass/volume)Ordered By: Sam Luis on 10-19-2024 Cholesterol in HDL [Mass/Vol] 34 mg/dL Low >40 [facility] Comment on above: National Cholesterol Education Program (NCEP) guidelines:<40 mg/dL: Low HDL-cholesterol (major risk factor for CHD)>= 60 mg/dL: High HDL-cholesterol (negative risk factor for CHD)HDL-cholesterol is affected by a number of factors, e.g. smoking, exercise, hormones, sex and age. Serum or plasma cholesterol measurement (mass/volume)Ordered By: Sam Luis on 10-19-2024 Cholesterol [Mass/Vol] 222 mg/dL High <201 [facility] Comment on above: Cholesterol level, D esirable <200 mg/dLBorderline high cholesterol 200-239 mg/dLHigh cholesterol >=240 mg/dLRecommendations of the NCEP Adult Treatment Panel for the following risk-cutoff thresholds for the [place] population. Serum or plasma urea nitroge n measurement (mass/volume)Ordered By: Sam Luis on 10-19-2024 Urea nitrogen [Mass/Vol] 19 mg/dL 4-19 [facility] Sodium levelOrdered By: Sam Luis on 10-19-2024 Sodium [Moles/Vol] 141 mmol/L 133-145 [facility] Total proteinOrdered By: Tosha Luis on 10-19-2024 Protein [Mass/Vol] 6.5 g/dL 5.9-8.4 [facility] Triglycerides measurementOrd ered By: Sam Luis on 10-19-2024 Triglyceride [Mass/Vol] 426 mg/dL High <199 [facility] Comment on above: The drugs N-Acetylcy steine and Metamizole may falsely depress this assay. Normal range: <150 mg/dLBorderline High: 150-199 mg/dLHigh: 200-499 mg/dLVery High: >500 mg/dL White blood cell (WBC) count Ordered By: Sam Luis on 10-19-2024 WBC (Bld) [#/Vol] 5.6 10*3/uL 4.4-11.0 [facility] Testosterone, Serum Totalon 07-23-2024 Testosterone [Mass/Vol] 585.50 ng/dL Normal [facility] Comment on above: Result Comment: CENT RAL 90% REFERENCE RANGES MALE AGE <50 197.44 - 669.58 ng/dL MALE AGE > or = 50 187.72 - 684.19 ng/dL FEMALE AGE <50 8.38 - 35.01 ng/dL FEMALE AGE > or = 50 <7.00 - 35.92 ng/dL Effective as of 03/03/21 Performed By: #### L 100.0100, L509.3000, L501.9910 #### [facility] Laboratory [facility] [place], [address] Absolute neutrophil countOrd ered By: Sam Luis on 07-20-2024 Neutrophils (Bld) [#/Vol] 3.5 10*3/uL 2.0-7.7 [facility] Basophil percentageOrdered B y: Sam Luis on 07-20-2024 Basophils/100 WBC (Bld) 0.6 % 0-1 [facility] CBC W/Diff, Automatedon 07-08 Absolute Lymph 1.02 X10 3/uL Normal 0.83-4.51 [facility] Comment on above: Performed By: #### L 100.0100, L509.3000, L501.9910 #### [facility] Laboratory [address] [place], [address] Absolute Neut 3.5 X10 3/uL Normal 2.0-7.7 [facility] Comment on above: Performed By: #### L 100.0100, L509.3000, L501.9910 #### [facility] [address] [place], [address] Basophils/100 WBC (Bld) 0.6 % Normal 0-1 [facility] Comment on above: Performed By: #### L 100.0100, L509.3000, L501.9910 #### [facility] [address] [place], [address] Eosinophils/100 WBC (Bld) 2.7 % Normal 0-5 [facility] Comment on above: Performed By: #### L 100.0100, L509.3000, L501.9910 #### [facility] [address] [place], [address] Erythrocyte distribution width (RBC) [Ratio] 13.4 % Normal 11.6-14.6 [facility] Comment on above: Performed By: #### L 100.0100, L509.3000, L501.9910 #### [facility] [address] [place], [address] Hematocrit (Bld) [Volume fraction] 45.5 % Normal 40-54 [facility] Comment on above: Performed By: #### L 100.0100, L509.3000, L501.9910 #### [facility] [address] [place], [address] Hemoglobin (Bld) [Mass/Vol] 15.6 g/dL Normal 13.0-16.5 [facility] Comment on above: Performed By: #### L 100.0100, L509.3000, L501.9910 #### [facility] [address] [place], [address] IG% 0.400 Normal 0.0-0.9 [facility] Comment on above: Result Comment: IG% - Immature Granulocytes (promyelocytes, myelocytes and metamyelocytes) > 1% indicates that a LEFT SHIFT is Present. Performed By: #### L 100.0100, L509.3000, L501.9910 #### [facility] [address] [place], [address] Lymphocytes/100 WBC (Bld) 19.5 % Normal 19-41 [facility] Comment on above: Performed By: #### L 100.0100, L509.3000, L501.9910 #### [facility] [address] [place], [address] MCH (RBC) [Entitic mass] 31.8 pg Normal 27.0-32.0 [facility] Comment on above: Performed By: #### L 100.0100, L509.3000, L501.9910 #### [facility] [address] [place], [address] MCHC (RBC) [Mass/Vol] 34.3 g/dL Normal 32-36 [facility] Comment on above: Performed By: #### L 100.0100, L509.3000, L501.9910 #### [facility] [address] [place], [address] MCV (RBC) [Entitic vol] 92.9 fL Normal 80-94 [facility] Comment on above: Performed By: #### L 100.0100, L509.3000, L501.9910 #### [facility] [address] [place], [address] Monocytes/100 WBC (Bld) 9.9 % Normal 0-10 [facility] Comment on above: Performed By: #### L 100.0100, L509.3000, L501.9910 #### [facility] [address] [place], [address] Neutrophils/100 WBC (Bld) 66.9 % Normal 47-70 [facility] Comment on above: Performed By: #### L 100.0100, L509.3000, L501.9910 #### [facility] [address] [place], [address] Nucleated RBC (Bld) [#/Vol] 0 10*3/uL Normal 0-5 [facility] Comment on above: Performed By: #### L 100.0100, L509.3000, L501.9910 #### [facility] [address] [place], [address] Platelet mean volume (Bld) [Entitic vol] 11.2 fL Normal 6.2-12.0 [facility] Comment on above: Performed By: #### L 100.0100, L509.3000, L501.9910 #### [facility] [address] [place], [address] Platelets (Bld) [#/Vol] 144 10*3/uL Low 150-450 [facility] Comment on above: Performed By: #### L 100.0100, L509.3000, L501.9910 #### [facility] [address] [place], [address] RBC (Bld) [#/Vol] 4.90 10*6/uL Normal 4.6-6.2 [facility] Comment on above: Performed By: #### L 100.0100, L509.3000, L501.9910 #### [facility] [address] [place], [address] RDW SD 45.0 fl High 35.1-43.9 [facility] Comment on above: Performed By: #### L 100.0100, L509.3000, L501.9910 #### [facility] [address] [place], [address] WBC (Bld) [#/Vol] 5.2 10*3/uL Normal 4.4-11.0 [facility] Comment on above: Performed By: #### L 100.0100, L509.3000, L501.9910 #### [facility] [address] [place], [address] Eosinophil percentageOrdered By: Sam Luis on 07-20-2024 Eosinophils/100 WBC (Bld) 2.7 % 0-5 [facility] Erythrocyte distribution wid th ratioOrdered By: Sam Luis on 07-20-2024 Erythrocyte distribution width (RBC) [Ratio] 13.4 % 11.6-14.6 [facility] Erythrocyte distribution wid th standard deviationOrdered By: Sam Luis on 07-20-2024 Erythrocyte distribution width (RBC) [Entitic vol] 45.0 fL High 35.1-43.9 [facility] Hematocrit Auto (Bld) [Volum e fraction]Ordered By: Sam Luis on 07-20-2024 Hematocrit (Bld) [Volume fraction] 45.5 % 40-54 [facility] Hemoglobin measurementOrdere d By: Sam Luis on 07-20-2024 Hemoglobin (Bld) [Mass/Vol] 15.6 g/dL 13.0-16.5 [facility] Immature granulocytes/100 WB C Auto (Bld)Ordered By: Sam Luis on 07-20-2024 Immature granulocytes/100 WBC (Bld) 0.400 % 0.0-0.9 [facility] Comment on above: IG% - Immature Granu locytes (promyelocytes, myelocytes and metamyelocytes) > 1% indicates that a LEFT SHIFT is Present. Lymphocytes Auto (Unsp spec) [#/Vol]Ordered By: Sam Luis on 07-20-2024 Lymphocytes (Bld) [#/Vol] 1.02 10*3/uL 0.83-4.51 [facility] Lymphocytes/100 WBC Auto (Un sp spec)Ordered By: Sam Luis on 07-20-2024 Lymphocytes/100 WBC (Bld) 19.5 % 19-41 [facility] MCV (mean corpuscular volume ) determinationOrdered By: Sam Luis on 07-20-2024 MCV (RBC) [Entitic vol] 92.9 fL 80-94 [facility] Mean corpuscular hemoglobin (MCH) determinationOrdered By: Sam Luis on 07-20-2024 MCH (RBC) [Entitic mass] 31.8 pg 27.0-32.0 [facility] Mean corpuscular hemoglobin concentration (MCHC) determinationOrdered By: Sam Luis on 07-20-2024 MCHC (RBC) [Mass/Vol] 34.3 g/dL 32-36 [facility] Mean platelet volume determi nationOrdered By: Sam Luis on 07-20-2024 Platelet mean volume (Bld) [Entitic vol] 11.2 fL 6.2-12.0 [facility] Monocyte percentageOrdered B y: Sam Luis on 07-20-2024 Monocytes/100 WBC (Bld) 9.9 % 0-10 [facility] Neutrophil percentageOrdered By: Sam Luis on 07-20-2024 Neutrophils/100 WBC (Bld) 66.9 % 47-70 [facility] Nucleated red blood cell per centageOrdered By: Sam Luis on 07-20-2024 Nucleated RBC/100 WBC (Bld) [Ratio] 0 % 0-5 [facility] PSA,Total - Annual Screenon 07-20-2024 PSA,TOT SCREEN 1.89 ng/mL Normal 0.00-4.00 [facility] Comment on above: Result Comment: This test was performed using the TPSA assay method for the [employer] system. Values obtained with different assay methods cannot be used interchangably. When changing PSA assays in the course of monitoring a patient, additional sequential testing should be carried out to confirm baseline values. Performed By: #### L 100.0100, L509.3000, L501.9910 #### [facility] [address] [place], [place], [id number] Platelet countOrdered By: Sae Luis on 07-20-2024 Platelets (Bld) [#/Vol] 144 10*3/uL Low 150-450 [facility] RBC Auto (Bld) [#/Vol]Ordere d By: Sam Luis on 07-20-2024 RBC (Bld) [#/Vol] 4.90 10*6/uL 4.6-6.2 [facility] Screening prostate specific antigen (PSA) measurementOrdered By: Sam Luis on 07-20-2024 Prostate Specific Antigen Screen 1.89 ng/mL 0.00-4.00 [facility] Comment on above: This test was perfor med using the TPSA assay method for [employer] chemistry system. Values obtained with differentassay methods cannot be used interchangably.When changing PSA assays in the course of monitoring apatient, additional sequential testing should be carriedout to confirm baseline values. Testosterone, totalOrdered B y: Sam Luis on 07-20-2024 Testosterone [Mass/Vol] 585.50 ng/dL [facility] Comment on above: CENTRAL 90% REFERENC E RANGES MALE AGE <50 197.44 - 669.58 ng/dL MALE AGE > or = 50 187.72 - 684.19 ng/dL FEMALE AGE <50 8.38 - 35.01 ng/dL FEMALE AGE > or = 50 <7.00 - 35.92 ng/dL Effective as of 03/03/21 White blood cell (WBC) count Ordered By: Sam Luis on 07-20-2024 WBC (Bld) [#/Vol] 5.2 10*3/uL 4.4-11.0 [facility] ED Prov Noteon 07-06-2024 ED Prov Note ED PROVIDER NOTE [facility] EMERGENCY [facility] NAME: Faustino Corral AGE: 68 y.o. : 1955 VISIT DATE: 07/06/2024 CSN: [id number] PCP: Sam Luis MD Chief Complaint Patient presents with Fall Elbow Pain Back Pain 68-year-old male patient presents ER for evaluation post fall. Patient slipped and fell off recliner, positive head strike, no LOC. Complaining of left elbow pain. Also endorsing lower back pain. No headache, neck pain, nausea or emesis. No weakness of the upper or lower extremities. Past Medical History: Diagnosis Date Chronic back pain COPD (chronic obstructive pulmonary disease) (HCC) Diabetes mellitus (HCC) Hard of hearing Hypertension TIA (transient ischemic attack) Past Surgical History: Procedure Laterality Date BACK SURGERY History reviewed. No pertinent family history. Social History Socioeconomic History Marital status: Tobacco Use Smoking status: Former Types: Cigarettes Smokeless tobacco: Never Vaping Use Vaping status: Never Used Substance and Sexual Activity Alcohol use: Not Currently Comment: QUIT 1989 Drug use: Not Currently Previous Medications Medication Sig ARIPiprazole (ABILIFY) 5 MG tablet Take 1 (one) tablet (5 mg total) by mouth daily . glimepiride (AMARYL) 2 MG tablet Take 1 (one) tablet (2 mg total) by mouth every morning before breakfast . losartan-hydrochloro thiazide (HYZAAR) 50-12.5 mg per tablet Take 1 (one) tablet by mouth daily . PARoxetine (PAXIL) 20 MG tablet Take 1 (one) tablet (20 mg total) by mouth daily . Allergies Allergen Reactions Penicillins GI Intolerance Review of Systems All other systems reviewed and are negative. Patient Vitals for the past 24 hrs: BP Temp Pulse Resp SpO2 Height Weight 07/06/24 0020 (!) 161/111 98 degrees F (36.7 degrees C) 68 18 96 % 5' 9 104.3 kg (230 lb) Physical Exam Vitals reviewed. Constitutional: Appearance: Normal appearance. HENT: Head: Normocephalic and atraumatic. Right Ear: Tympanic membrane and external ear normal. Left Ear: Tympanic membrane and external ear normal. Nose: Nose normal. Mouth/Throat: Mouth: Mucous membranes are moist. Pharynx: Oropharynx is clear. Eyes: Extraocular Movements: Extraocular movements intact. Pupils: Pupils are equal, round, and reactive to light. Cardiovascular: Rate and Rhythm: Normal rate and regular rhythm. Pulses: Normal pulses. Heart sounds: Normal heart sounds. Musculoskeletal: Cervical back: Normal range of motion and neck supple. Comments: Tenderness of the left elbow, paravertebral lumbar tenderness Pulmonary: Effort: Pulmonary effort is normal. Breath sounds: Normal breath sounds. Abdominal: General: Abdomen is flat. Palpations: Abdomen is soft. Skin: General: Skin is dry. Capillary Refill: Capillary refill takes less than 2 seconds. Neurological: General: No focal deficit present. Mental Status: He is alert and oriented to person, place, and time. Psychiatric: Mood and Affect: Mood normal. Behavior: Behavior normal. Laboratory & Radiographic Imaging (if done): No results found for this visit on 07/06/24. XR Elbow Left 3+ Views (Standard) (Results Pending) Procedures Medical Decision Making Patient presents ER for evaluation post fall, on arrival vital stable, no acute distress. GCS 15. Denies any significant head injuries during this fall, no significant headaches, or neck pain. Tenderness in the left elbow, paravertebral lumbar spine. Does suffer from chronic back pain and has is her spinal stenosis. Deferred advanced imaging, x-ray of the elbow demonstrates no fracture, discharged home with supportive measures and outpatient follow-up . Clinical Impression: No diagnosis found. ED Disposition None Follow-up Information Follow-up information has not been specified. Contact information for after-discharge care Follow-up information has not been specified. Fletcher Guidry MD 07/09/24 2315 AUTHENTICATED BY FLETCHER GUIDRY, ON 07/09/2024 23:15:04 [facility] XR ELBOW LEFT 3+ VIEWS (RL PAT)on 07-06-2024 XR ELBOW LEFT 3+ VIEWS (STANDARD) EXAMINATION: XR ELBOW LEFT 3+ VIEWS (STANDARD) 07/06/2024 12:30 am HISTORY: ORDERING SYSTEM PROVIDED HISTORY: fall elbow pain and swelling, TECHNOLOGIST PROVIDED HISTORY: The patient is a 68-year-old male. Injury/Trauma Reason for exam: fall, pain to posterior lt elbow Cancer History: no Surgery, RadiationHistory: none Encounter Type: Initial Mechanism of injury: fall ORDERING SYSTEM PROVIDED DIAGNOSIS CODES: COMPARISON: None. FINDINGS: No fractures or dislocations are seen within or around the left elbow. There is no fat pad elevation. There are small calcifications within the vicinity of the triceps tendon. These do not have the appearance of acute fractures. IMPRESSION: No radiographic findings of acute trauma of the left elbow. Workstation ID: [id number] Dictated by: KANCHAN ANDUJAR on TueJul 06, 2024 12:54:53 AM EST Transcribed by: KANCHAN ANDUJAR on TueJul 06, 2024 12:54:53 AM EST Finalized by: KANCHAN ANDUJAR on TueJul 06, 2024 12:54:53 AM EST [facility] Comment on above: Order Comment: Injur y/Trauma or Illness?:Injury/Trauma How long have you had these symptoms (acute/chronic)?:Acute Reason for exam?:fall, pain to posterior lt elbow History of cancer?:no Surgeries, chemotherapy, or radiation?:none Type of Exam?:Initial Mechanism of injury?:fall Testosterone, Totalon 2023 TESTOSTER,TOTAL Normal [facility] Comment on above: Order Comment: SENDI NG SPECIMEN TO REFERENCE LABORATORY N Result Comment: TEST RESULTS LIMITS Testosterone, Total 114 Low ng/dL 264-916 Adult male reference interval is based on a population of healthy nonobese males (BMI <30) between 19 and 39 years old. Pedrito et.al. JCEM 2017,102;4447-7476. PMID: [id number]. TESTING PERFORMED AT [facility]. ORIGINAL REPORT ON FILE IN LAB CONTAINS ADDITIONAL TEST SITE INFORMATION. Performed By: #### L 501.9520, L3100.5320, L500.4100, L500.4050, L501.9985, L502.0250 #### [facility] [address] [place], [address] Comprehensive Metabolic Prof ilon 05-21-2024 Albumin [Mass/Vol] 3.8 g/dL Normal 3.2-5.0 [facility] Comment on above: Performed By: #### L 501.9520, L3100.5320, L500.4100, L500.4050, L501.9985, L502.0250 #### [facility] [address] [place], [address] Albumin/Globulin [Mass ratio] 1.5 {ratio} Normal 0.9-2.4 [facility] Comment on above: Performed By: #### L 501.9520, L3100.5320, L500.4100, L500.4050, L501.9985, L502.0250 #### [facility] [address] [place], [address] ALK P 119 U/L High 45-117 [facility] Comment on above: Performed By: #### L 501.9520, L3100.5320, L500.4100, L500.4050, L501.9985, L502.0250 #### [facility] [address] [place], [address] ALT [Catalytic activity/Vol] 70 U/L High 16-61 [facility] Comment on above: Performed By: #### L 501.9520, L3100.5320, L500.4100, L500.4050, L501.9985, L502.0250 #### [facility] [address] [place], [address] AST [Catalytic activity/Vol] 42 U/L High 15-37 [facility] Comment on above: Performed By: #### L 501.9520, L3100.5320, L500.4100, L500.4050, L501.9985, L502.0250 #### [facility] [address] [place], [address] Bilirubin [Mass/Vol] 2.20 mg/dL High 0.20-1.00 [facility] Comment on above: Result Comment: For patients on eltrombopag therapy, use of Dimension [place] TBIL is not recommended. Performed By: #### L 501.9520, L3100.5320, L500.4100, L500.4050, L501.9985, L502.0250 #### [facility] [address] [place], [address] BUN/CRE 12.1 RATIO Normal 10-20 [facility] Comment on above: Performed By: #### L 501.9520, L3100.5320, L500.4100, L500.4050, L501.9985, L502.0250 #### [facility] [address] [place], [address] CA,Total 9.0 mg/dL Normal 8.5-10.1 [facility] Comment on above: Performed By: #### L 501.9520, L3100.5320, L500.4100, L500.4050, L501.9985, L502.0250 #### [facility] [address] [place], [address] Chloride [Moles/Vol] 108 mmol/L High 98-107 [facility] Comment on above: Performed By: #### L 501.9520, L3100.5320, L500.4100, L500.4050, L501.9985, L502.0250 #### [facility] [address] [place], [address] CO2 [Moles/Vol] 26.0 mmol/L Normal 21.0-32.0 [facility] Comment on above: Performed By: #### L 501.9520, L3100.5320, L500.4100, L500.4050, L501.9985, L502.0250 #### [facility] [address] [place], [address] Creatinine [Mass/Vol] 0.99 mg/dL Normal 0.70-1.30 [facility] Comment on above: Result Comment: The validity of the calculated GFR GFRAA in patients over 70 years has not been determined. Clinical correlation is essential. Performed By: #### L 501.9520, L3100.5320, L500.4100, L500.4050, L501.9985, L502.0250 #### [facility] [address] [place], [address] EST GFR - AA 96 mL/min Normal >60 [facility] Comment on above: Result Comment: Afri can Estonian GFR Calc Performed By: #### L 501.9520, L3100.5320, L500.4100, L500.4050, L501.9985, L502.0250 #### [facility] [address] [place], [address] GAP 6 Normal 5-15 [facility] Comment on above: Performed By: #### L 501.9520, L3100.5320, L500.4100, L500.4050, L501.9985, L502.0250 #### [facility] [address] [place], [address] GFR/1.73 sq M.predicted among non-blacks MDRD (S/P/Bld) [Vol rate/Area] 80 mL/min/{1.73_m2} Normal >60 [facility] Comment on above: Result Comment: Non- GFR Calc Performed By: #### L 501.9520, L3100.5320, L500.4100, L500.4050, L501.9985, L502.0250 #### [facility] [address] [place], [address] Globulin (S) [Mass/Vol] 2.6 g/dL Normal 2.2-4.2 [facility] Comment on above: Performed By: #### L 501.9520, L3100.5320, L500.4100, L500.4050, L501.9985, L502.0250 #### [facility] [address] [place], [address] Glucose [Mass/Vol] 147 mg/dL High 74-106 [facility] Comment on above: Result Comment: Fast ing Glucose result greater than or equal to 126 mg/dL suggests DIABETES MELLITUS per A.D.A. criteria. Performed By: #### L 501.9520, L3100.5320, L500.4100, L500.4050, L501.9985, L502.0250 #### [facility] [address] [place], [address] Potassium [Moles/Vol] 4.0 mmol/L Normal 3.5-5.1 [facility] Comment on above: Performed By: #### L 501.9520, L3100.5320, L500.4100, L500.4050, L501.9985, L502.0250 #### [facility] [address] [place], [address] Sodium [Moles/Vol] 140 mmol/L Normal 136-145 [facility] Comment on above: Performed By: #### L 501.9520, L3100.5320, L500.4100, L500.4050, L501.9985, L502.0250 #### [facility] [address] [place], [address] T PROT 6.4 g/dL Normal 6.4-8.2 [facility] Comment on above: Performed By: #### L 501.9520, L3100.5320, L500.4100, L500.4050, L501.9985, L502.0250 #### [facility] [address] [place], [address] Urea nitrogen [Mass/Vol] 12 mg/dL Normal 7-18 [facility] Comment on above: Performed By: #### L 501.9520, L3100.5320, L500.4100, L500.4050, L501.9985, L502.0250 #### [facility] [address] [place], [address] Hemoglobin A1con 05-21-2024 HbA1c (Bld) [Mass fraction] 6.2 % High 3.8-5.6 [facility] Comment on above: Result Comment: Norm al < 5.7 % Prediabetic 5.7 - 6.4 % Diabetic >or= 6.5 % Please note range changes. Performed By: #### L 501.9520, L3100.5320, L500.4100, L500.4050, L501.9985, L502.0250 #### [facility] [address] [place], [address] Lipid Profileon 05-21-2024 Cholesterol [Mass/Vol] 222 mg/dL High 200 [facility] Comment on above: Result Comment: <200 mg/dL Desirable 200-240 mg/dL Borderline >240 mg/dL High Risk Performed By: #### L 501.9520, L3100.5320, L500.4100, L500.4050, L501.9985, L502.0250 #### [facility] [address] [place], [address] Cholesterol in HDL [Mass/Vol] 40 mg/dL Normal [facility] Comment on above: Result Comment: The drugs N-Acetylcysteine and Metamizole may falsely depress this assay. Reference Range HDL <40 mg/dL Low HDL Cholesterol HDL >or= 60 mg/dL High HDL Cholesterol Performed By: #### L 501.9520, L3100.5320, L500.4100, L500.4050, L501.9985, L502.0250 #### [facility] [address] [place], [address] Cholesterol in LDL [Mass/Vol] 103 mg/dL Normal 0-130 [facility] Comment on above: Performed By: #### L 501.9520, L3100.5320, L500.4100, L500.4050, L501.9985, L502.0250 #### [facility] [address] [place], [address] Cholesterol in VLDL [Mass/Vol] 79 mg/dL High 5-40 [facility] Comment on above: Performed By: #### L 501.9520, L3100.5320, L500.4100, L500.4050, L501.9985, L502.0250 #### [facility] [address] [place], [place], [phone] Triglyceride [Mass/Vol] 395 mg/dL High [facility] Comment on above: Result Comment: The drugs N-Acetylcysteine and Metamizole may falsely depress this assay. Serum Triglycerides Reference Interval Normal <150 mg/dL Borderline high 150 - 199 mg/dL High 200 - 499 mg/dL Very High > or = 500 mg/dL Performed By: #### L 501.9520, L3100.5320, L500.4100, L500.4050, L501.9985, L502.0250 #### [facility] [address] [place], [address] Microalb:Creat Ratio,Random URon 05-21-2024 Creatinine [Mass/Vol] 164.00 mg/dL Normal NO RANGE EST . [facility] Comment on above: Performed By: #### L 501.9520, L3100.5320, L500.4100, L500.4050, L501.9985, L502.0250 #### [facility] [address] [facility] [place], [place], [id number] MALB:CRE 14.3 mg/g CRE Normal <30 mg/g CRE [facility] Comment on above: Performed By: #### L 501.9520, L3100.5320, L500.4100, L500.4050, L501.9985, L502.0250 #### [facility] [address] [facility] [place], [place], [phone] MICROALBUMIN,UR 23.5 mg/L Normal NO RANGE EST. [facility] Comment on above: Performed By: #### L 501.9520, L3100.5320, L500.4100, L500.4050, L501.9985, L502.0250 #### [facility] [address] [place], [address] Thyroid Stim Hormone (TSH)on 05-21-2024 TSH 2.110 uIU/mL Normal 0.358-3.740 [facility] Comment on above: Performed By: #### L 501.9520, L3100.5320, L500.4100, L500.4050, L501.9985, L502.0250 #### [facility] [address] [place], [address] Comprehensive Metabolic Prof ilon 01-25-2024 Albumin [Mass/Vol] 3.8 g/dL Normal 3.2-5.0 [facility] Comment on above: Performed By: #### L 500.4050 #### [facility] [address] [place], [address] Albumin/Globulin [Mass ratio] 1.5 {ratio} Normal 0.9-2.4 [facility] Comment on above: Performed By: #### L 500.4050 #### [facility] [address] [place], [address] ALK P 117 U/L Normal 45-117 [facility] Comment on above: Performed By: #### L 500.4050 #### [facility] [address] [place], [address] ALT [Catalytic activity/Vol] 48 U/L Normal 16-61 [facility] Comment on above: Performed By: #### L 500.4050 #### [facility] [address] [place], [address] AST [Catalytic activity/Vol] 32 U/L Normal 15-37 [facility] Comment on above: Performed By: #### L 500.4050 #### [facility] [address] [place], [address] Bilirubin [Mass/Vol] 2.40 mg/dL High 0.20-1.00 [facility] Comment on above: Result Comment: For patients on eltrombopag therapy, use of Dimension [place] TBIL is not recommended. Performed By: #### L 500.4050 #### [facility] [address] [place], [address] BUN/CRE 12.6 RATIO Normal 10-20 [facility] Comment on above: Performed By: #### L 500.4050 #### [facility] [address] [place], [address] CA,Total 8.9 mg/dL Normal 8.5-10.1 [facility] Comment on above: Performed By: #### L 500.4050 #### [facility] [address] [place], [address] Chloride [Moles/Vol] 110 mmol/L High 98-107 [facility] Comment on above: Performed By: #### L 500.4050 #### [facility] [address] [place], [address] CO2 [Moles/Vol] 24.0 mmol/L Normal 21.0-32.0 [facility] Comment on above: Performed By: #### L 500.4050 #### [facility] [address] [place], [address] Creatinine [Mass/Vol] 0.88 mg/dL Normal 0.70-1.30 [facility] Comment on above: Result Comment: The validity of the calculated GFR GFRAA in patients over 70 years has not been determined. Clinical correlation is essential. Performed By: #### L 500.4050 #### [facility] [address] [place], [address] EST GFR - AA 111 mL/min Normal >60 [facility] Comment on above: Result Comment: Afri can Estonian GFR Calc Performed By: #### L 500.4050 #### [facility] [address] [place], [address] GAP 10 Normal 5-15 [facility] Comment on above: Performed By: #### L 500.4050 #### [facility] [address] [place], [address] GFR/1.73 sq M.predicted among non-blacks MDRD (S/P/Bld) [Vol rate/Area] 92 mL/min/{1.73_m2} Normal >60 [facility] Comment on above: Result Comment: Non- GFR Calc Performed By: #### L 500.4050 #### [facility] [address] [place], [address] Globulin (S) [Mass/Vol] 2.5 g/dL Normal 2.2-4.2 [facility] Comment on above: Performed By: #### L 500.4050 #### [facility] [address] [place], [address] Glucose [Mass/Vol] 137 mg/dL High 74-106 [facility] Comment on above: Result Comment: Fast ing Glucose result greater than or equal to 126 mg/dL suggests DIABETES MELLITUS per A.D.A. criteria. Performed By: #### L 500.4050 #### [facility] [address] [place], [address] Potassium [Moles/Vol] 3.5 mmol/L Normal 3.5-5.1 [facility] Comment on above: Performed By: #### L 500.4050 #### [facility] [address] [place], [address] Sodium [Moles/Vol] 144 mmol/L Normal 136-145 [facility] Comment on above: Performed By: #### L 500.4050 #### [facility] [address] [place], [address] T PROT 6.3 g/dL Low 6.4-8.2 [facility] Comment on above: Performed By: #### L 500.4050 #### [facility] [address] [place], [place], [id number] Urea nitrogen [Mass/Vol] 11 mg/dL Normal 7-18 [facility] Comment on above: Performed By: #### L 500.4050 #### [facility] [address] [place], [place], [id number] Basophil percentageOrdered B y: Sam Luis on 10-27-2023 Bilirubin [Mass/Vol] 2.70 mg/dL 0.20-1.00 [facility] Comment on above: For patients on eltr ombopag therapy, use of Dimension [place] TBIL is not recommended. Chloride [Moles/Vol] 107 mmol/L 98-107 [facility] Cholesterol [Mass/Vol] 161 mg/dL <200 [facility] Comment on above: <200 mg/dL Desirable 200-240 mg/dL Borderline >240 mg/dL High Risk Glucose [Mass/Vol] 116 mg/dL 74-106 [facility] Comment on above: Fasting Glucose resu lt from 100 to 125 mg/dL suggests IMPAIRED HOMEOSTASIS per A.D.A. criteria. Potassium [Moles/Vol] 3.2 mmol/L 3.5-5.1 [facility] Protein [Mass/Vol] 6.7 g/dL 6.4-8.2 [facility] Sodium [Moles/Vol] 143 mmol/L 136-145 [facility] Triglyceride [Mass/Vol] 364 mg/dL <199 [facility] Comment on above: The drugs N-Acetylcy steine and Metamizole may falsely depress this assay.Serum Triglycerides Reference Interval Normal <150 mg/dL Borderline high 150 - 199 mg/dL High 200 - 499 mg/dL Very High > or = 500 mg/dL Laboratory - Chemistry and C hemistry - challengeOrdered By: Sam Luis on 10-27-2023 Albumin/Globulin [Mass ratio] 1.5 {ratio} 0.9-2.4 [facility] ALP [Catalytic activity/Vol] 98 U/L 45-117 [facility] ALT [Catalytic activity/Vol] 39 U/L 16-61 [facility] Cholesterol in HDL [Mass/Vol] 43 mg/dL >40 [facility] Comment on above: The drugs N-Acetylcy steine and Metamizole may falsely depress this assay. Reference Range HDL <40 mg/dL Low HDL Cholesterol HDL >or= 60 mg/dL High HDL Cholesterol Cholesterol in LDL [Mass/Vol] 45 mg/dL 0-130 [facility] CO2 [Moles/Vol] 29.0 mmol/L 21.0-32.0 [facility] Globulin (S) [Mass/Vol] 2.7 g/dL 2.2-4.2 [facility] Urea nitrogen/Creatinine [Mass ratio] 12.2 mg/mg 10-20 [facility] No Panel InformationOrdered By: Sam Luis on 10-27-2023 Estimated GFR (MDRD) Amer 97 mL/min >60 [facility] Comment on above: GFR Calc Estimated GFR (MDRD) Non-Af Amer 80 mL/min >60 [facility] Comment on above: Non- GFR Calc VLDL Cholesterol 73 mg/dL 5-40 [facility] Serum or plasma calcium suzan urement (mass/volume)Ordered By: Sam Luis on 10-27-2023 Calcium [Mass/Vol] 9.1 mg/dL 8.5-10.1 [facility] Serum or plasma creatinine m easurement (mass/volume)Ordered By: Sam Luis on 10-27-2023 Creatinine [Mass/Vol] 0.98 mg/dL 0.70-1.30 [facility] Comment on above: The validity of the calculated GFR & GFRAA in patients over 70 years has not been determined. Clinical correlation is essential. Serum or plasma urea nitroge n measurement (mass/volume)Ordered By: Sam Luis on 10-27-2023 Urea nitrogen [Mass/Vol] 12 mg/dL 7-18 [facility] Thin prep Papanicolaou smear with manual screeningOrdered By: Sam Luis on 10-27-2023 Thin prep Papanicolaou smear with manual screening 4.0 g/dL 3.2-5.0 [facility] Thin prep Papanicolaou smear with manual screening 32 U/L 15-37 [facility] Thin prep Papanicolaou smear with manual screening 7 5-15 [facility] Basophil percentageOrdered B y: Sam Luis on 05-04-2023 Chloride [Moles/Vol] 111 mmol/L 98-107 [facility] Cholesterol [Mass/Vol] 161 mg/dL <200 [facility] Comment on above: <200 mg/dL Desirable 200-240 mg/dL Borderline >240 mg/dL High Risk Glucose [Mass/Vol] 131 mg/dL 74-106 [facility] Comment on above: Fasting Glucose resu lt greater than or equal to 126 mg/dL suggests DIABETES MELLITUS per A.D.A. criteria. Potassium [Moles/Vol] 3.5 mmol/L 3.5-5.1 [facility] Sodium [Moles/Vol] 141 mmol/L 136-145 [facility] Triglyceride [Mass/Vol] 406 mg/dL <199 [facility] Comment on above: The drugs N-Acetylcy steine and Metamizole may falsely depress this assay. TRIGLYCERIDE IS GREATER THAN 400 mg/dL. LDL RESULT IS INVALID AND WILL NOT BE REPORTED.Serum Triglycerides Reference Interval Normal <150 mg/dL Borderline high 150 - 199 mg/dL High 200 - 499 mg/dL Very High > or = 500 mg/dL Laboratory - Chemistry and C hemistry - challengeOrdered By: Sam Luis on 05-04-2023 CO2 [Moles/Vol] 24.0 mmol/L 21.0-32.0 [facility] Urea nitrogen/Creatinine [Mass ratio] 12.6 mg/mg 10-20 [facility] No Panel InformationOrdered By: Sam Luis on 05-04-2023 Estimated GFR (MDRD) Amer 101 mL/min >60 [facility] Comment on above: GFR Calc Estimated GFR (MDRD) Non-Af Amer 84 mL/min >60 [facility] Comment on above: Non- GFR Calc Serum or plasma calcium suzan urement (mass/volume)Ordered By: Sam Luis on 05-04-2023 Calcium [Mass/Vol] 8.6 mg/dL 8.5-10.1 [facility] Serum or plasma cholesterol in HDL measurement (mass/volume)Ordered By: Sam Luis on 05-04-2023 Cholesterol in HDL [Mass/Vol] 41 mg/dL >40 [facility] Comment on above: The drugs N-Acetylcy steine and Metamizole may falsely depress this assay. Reference Range HDL <40 mg/dL Low HDL Cholesterol HDL >or= 60 mg/dL High HDL Cholesterol Serum or plasma cholesterol in VLDL measurement (mass/volume)Ordered By: Sam Luis on 05-04-2023 Cholesterol in VLDL [Mass/Vol] [facility] Comment on above: Test not performed Serum or plasma creatinine m easurement (mass/volume)Ordered By: Sam Luis on 05-04-2023 Creatinine [Mass/Vol] 0.95 mg/dL 0.70-1.30 [facility] Comment on above: The validity of the calculated GFR & GFRAA in patients over 70 years has not been determined. Clinical correlation is essential. Serum or plasma low density lipoprotein (LDL) cholesterol measurement (mass/volume)Ordered By: Sam Luis on 05-04-2023 Cholesterol in LDL [Mass/Vol] [facility] Comment on above: Test not performed Serum or plasma urea nitroge n measurement (mass/volume)Ordered By: Sam Luis on 05-04-2023 Urea nitrogen [Mass/Vol] 12 mg/dL 7-18 [facility] Thin prep Papanicolaou smear with manual screeningOrdered By: Sam Luis on 05-04-2023 Thin prep Papanicolaou smear with manual screening 6 5-15 [facility] Glucose Glucometer (BldC) [M ass/Vol]on 08-18-2022 Glucose [Mass/Vol] 141 mg/dL 74-106 [facility] Work Phone: Comment on above: MANAGEMENT OF PATIEN T CARE PER NURSING PROTOCOL Absolute lymphocyte counton 08-06-2022 Lymphocytes Auto (Unsp spec) [#/Vol] 1.04 10*3/uL 0.83-4.51 [facility] Work Phone: Basophil percentageon 2021 Basophils/100 WBC (Bld) 1.0 % 0-1 [facility] Work Phone: Chloride [Moles/Vol] 109 mmol/L 98-107 [facility] Work Phone: Eosinophils/100 WBC (Bld) 3.5 % 0-5 [facility] Work Phone: Glucose [Mass/Vol] 117 mg/dL 74-106 [facility] Work Phone: Comment on above: Fasting Glucose resu lt from 100 to 125 mg/dL suggests IMPAIRED HOMEOSTASIS per A.D.A. criteria. Neutrophils (Bld) [#/Vol] 3.1 10*3/uL 2.0-7.7 [facility] Work Phone: Neutrophils/100 WBC (Bld) 64.2 % 47-70 [facility] Work Phone: Potassium [Moles/Vol] 3.7 mmol/L 3.5-5.1 [facility] Work Phone: Sodium [Moles/Vol] 143 mmol/L 136-145 [facility] Work Phone: WBC (Bld) [#/Vol] 4.8 10*3/uL 4.4-11.0 [facility] Work Phone: Blood erythrocytes count (nu mber/volume)on 08-06-2022 RBC (Bld) [#/Vol] 4.65 10*6/uL 4.6-6.2 [facility] Work Phone: Blood hemoglobin measurement (mass/volume)on 08-06-2022 Hemoglobin (Bld) [Mass/Vol] 15.1 g/dL 13.0-16.5 [facility] Work Phone: Blood lymphocytes/100 leukoc yteson 08-06-2022 Lymphocytes/100 WBC (Bld) 21.7 % 19-41 [facility] Work Phone: Blood monocytes/100 leukocyt eson 08-06-2022 Monocytes/100 WBC (Bld) 9.4 % 0-10 [facility] Work Phone: Blood platelet mean volumeon 08-06-2022 Platelet mean volume (Bld) [Entitic vol] 12.2 fL 6.2-12.0 [facility] Work Phone: [phone] Determination of erythrocyte mean corpuscular volume (MCV)on 08-06-2022 MCV (RBC) [Entitic vol] 90.8 fL 80-94 [facility] Work Phone: [phone] HIV 1 and HIV-2 antibody ass ay with HIV-1 p24 antigen detectionon 08-06-2022 HIV 1+2 Ab+HIV1 p24 Ag IA Ql Non-Reactive Nonreactive [facility] Work Phone: [phone] Hematocrit Auto (Bld) [Volum e fraction]on 08-06-2022 Hematocrit (Bld) [Volume fraction] 42.2 % 40-54 [facility] Work Phone: [phone] Laboratory - Chemistry and C hemistry - challengeon 08-06-2022 CO2 [Moles/Vol] 28.0 mmol/L 21.0-32.0 [facility] Work Phone: [phone] Magnesium [Mass/Vol] 2.2 mg/dL 1.6-2.6 [facility] Work Phone: [phone] Urea nitrogen/Creatinine [Mass ratio] 18.1 mg/mg 10-20 [facility] Work Phone: [phone] Laboratory - Hematology and Cell countson 08-06-2022 Erythrocyte distribution width (RBC) [Entitic vol] 43.3 fL 35.1-43.9 [facility] Work Phone: [phone] Erythrocyte distribution width (RBC) [Ratio] 13.2 % 11.6-14.6 [facility] Work Phone: [phone] Immature granulocytes/100 WBC (Bld) 0.200 % 0.0-0.9 [facility] Work Phone: [phone] Comment on above: IG% - Immature Granu locytes (promyelocytes, myelocytes and metamyelocytes) > 1% indicates that a LEFT SHIFT is Present. MCH (RBC) [Entitic mass] 32.5 pg 27.0-32.0 [facility] Work Phone: [phone] Nucleated RBC/100 WBC (Bld) [Ratio] 0 % 0-5 [facility] Work Phone: [phone] MCHC Auto (RBC) [Mass/Vol]on 08-06-2022 MCHC (RBC) [Mass/Vol] 35.8 g/dL 32-36 [facility] Work Phone: [phone] Panel Informationon 08-06 Estimated GFR (MDRD) Amer 90 mL/min >60 [facility] Work Phone: [phone] Comment on above: GFR Calc Estimated GFR (MDRD) Non-Af Amer 75 mL/min >60 [facility] Work Phone: [phone] Comment on above: Non- GFR Calc Hepatitis A Antibody Total Negative Negative [facility] Work Phone: [phone] Comment on above: Performed at: [employer] [facility] [place] [id number] Director: Josh Graham PhD, Phone: [phone] Hepatitis C Antibody Non-Reactive Nonreactive [facility] Work Phone: [phone] Comment on above: Non Reactive: < 0.8 Equivocal: >/= 0.8 to < 1.0 Reactive: >/= 1.0The CDC recommends that a reactive/equivocal HCV antibody result be followed up by the HCV Nucleic Acid Amplificationtest ([id number]) Platelets bldon 08-06-2022 Platelets (Bld) [#/Vol] 138 10*3/uL 150-450 [facility] Work Phone: [phone] hepatitis B virus surf janell antibody IgG detectionon 08-06-2022 HBV surface IgG Ql (S) Non-Reactive [facility] Work Phone: [phone] Comment on above: Non Reactive: Incons istent with immunity less than <10 mIU/mL Reactive: Consistent with immunity greater than or equal to 10 mIU/mL Serum or plasma calcium suzan urement (mass/volume)on 08-06-2022 Calcium [Mass/Vol] 9.1 mg/dL 8.5-10.1 [facility] Work Phone: [phone] Serum or plasma creatinine m easurement (mass/volume)on 08-06-2022 Creatinine [Mass/Vol] 1.05 mg/dL 0.70-1.30 [facility] Work Phone: Comment on above: The validity of the calculated GFR & GFRAA in patients over 70 years has not been determined. Clinical correlation is essential. Serum or plasma urea nitroge n measurement (mass/volume)on 08-06-2022 Urea nitrogen [Mass/Vol] 19 mg/dL 7-18 [facility] Work Phone: Thin prep Papanicolaou smear with manual screeningon 08-06-2022 Thin prep Papanicolaou smear with manual screening 6 5-15 [facility] Work Phone: Whole blood hemoglobin A1c/t otal hemoglobin ratio (mass fraction)on 08-06-2022 HbA1c (Bld) [Mass fraction] 5.9 % 3.8-5.6 [facility] Work Phone: Comment on above: Normal < 5.7 % Predi abetic 5.7 - 6.4 % Diabetic >or= 6.5 % Please note range changes. No Panel Informationon 04-16 Fructosamine 307 umol/L 0-285 [facility] Work Phone: Comment on above: Published reference interval for apparently healthysubjects between age 20 and 60 is 205 - 285 umol/L and in apoorly controlled diabetic population is 228 - 563 umol/Lwith a mean of 396 umol/L.Performed at: [facility] [id number] Director: Josh Graham PhD, Phone: [phone] Whole blood hemoglobin A1c/t otal hemoglobin ratio (mass fraction)on 04-16-2022 HbA1c (Bld) [Mass fraction] 7.5 % 3.8-5.6 [facility] Work Phone: Comment on above: Normal < 5.7 % Predi abetic 5.7 - 6.4 % Diabetic >or= 6.5 % Please note range changes. Basophil percentageon 2021 Chloride [Moles/Vol] 107 mmol/L 98-[address] [facility] Work Phone: Cholesterol [Mass/Vol] 150 mg/dL <200 [address] [facility] Work Phone: Comment on above: <200 mg/dL Desirable 200-240 mg/dL Borderline >240 mg/dL High Risk Glucose [Mass/Vol] 149 mg/dL 74-106 [facility] Work Phone: Comment on above: Fasting Glucose resu lt greater than or equal to 126 mg/dL suggests DIABETES MELLITUS per A.D.A. criteria. Potassium [Moles/Vol] 3.6 mmol/L 3.5-5.1 [facility] Work Phone: Sodium [Moles/Vol] 141 mmol/L 136-145 [facility] Work Phone: Triglyceride [Mass/Vol] 234 mg/dL <199 [facility] Work Phone: Comment on above: The drugs N-Acetylcy steine and Metamizole may falsely depress this assay.Serum Triglycerides Reference Interval Normal <150 mg/dL Borderline high 150 - 199 mg/dL High 200 - 499 mg/dL Very High > or = 500 mg/dL Laboratory - Chemistry and C hemistry - challengeon 02-22-2022 CO2 [Moles/Vol] 27.0 mmol/L 21.0-32.0 [facility] Work Phone: Urea nitrogen/Creatinine [Mass ratio] 21.0 mg/mg 10-20 [facility] Work Phone: No Panel Informationon 02-22 Estimated GFR (MDRD) Amer 122 mL/min >60 [facility] Work Phone: [phone] Comment on above: GFR Calc Estimated GFR (MDRD) Non-Af Amer 101 mL/min >60 [facility] Work Phone: Comment on above: Non- GFR Calc Serum or plasma calcium suzan urement (mass/volume)on 02-22-2022 Calcium [Mass/Vol] 8.7 mg/dL 8.5-10.1 [facility] Work Phone: Serum or plasma cholesterol in HDL measurement (mass/volume)on 02-22-2022 Cholesterol in HDL [Mass/Vol] 46 mg/dL >40 [facility] Work Phone: Comment on above: The drugs N-Acetylcy steine and Metamizole may falsely depress this assay. Reference Range HDL <40 mg/dL Low HDL Cholesterol HDL >or= 60 mg/dL High HDL Cholesterol Serum or plasma cholesterol in VLDL measurement (mass/volume)on 02-22-2022 Cholesterol in VLDL [Mass/Vol] 47 mg/dL 5-40 [facility] Work Phone: [phone] Serum or plasma creatinine m easurement (mass/volume)on 02-22-2022 Creatinine [Mass/Vol] 0.81 mg/dL 0.70-1.30 [facility] Work Phone: Comment on above: The validity of the calculated GFR & GFRAA in patients over 70 years has not been determined. Clinical correlation is essential. Serum or plasma low density lipoprotein (LDL) cholesterol measurement (mass/volume)on 02-22-2022 Cholesterol in LDL [Mass/Vol] 57 mg/dL 0-130 [facility] Work Phone: Serum or plasma urea nitroge n measurement (mass/volume)on 02-22-2022 Urea nitrogen [Mass/Vol] 17 mg/dL 18 [facility] Work Phone: [phone] Thin prep Papanicolaou smear with manual screeningon 02-22-2022 Thin prep Papanicolaou smear with manual screening 7 5-15 [facility] Work Phone: No Panel Information Nasal Screen MRSA/MSSA [facility] Work Phone: Vital Signs Date Time Vital Sign Value Performing Clinician Faci lity 08-18-2022 11:10-0500 Body temperature 97.6 [degF] Dr. Sam Luis Work Phone: [facility] Work Phone: 08-18-2022 11:10-0500 Diastolic blood pressure 54 mm[Hg] Dr. Sam Luis Work Phone: [facility] Work Phone: 08-18-2022 11:10-0500 Heart rate 63 /min Dr. Sam Luis Work Phone: [facility] Work Phone: 08-18-2022 11:10-0500 Respiratory rate 16 /min Dr. Sam Luis Work Phone: [facility] Work Phone: 08-18-2022 11:10-0500 SaO2% (BldA) [Mass fraction] 96 % Dr. Sam Luis Work Phone: [facility] Work Phone: 08-18-2022 11:10-0500 Systolic blood pressure 94 mm[Hg] Dr. Sam Luis Work Phone: [facility] Work Phone: 08-17-2022 03:00-0500 Inhaled oxygen flow rate 2 L/min Dr. Sam Luis Work Phone: [facility] Work Phone: 08-16-2022 14:59-0500 Body height 175.[address] Sam Luis Work Phone: [facility] Work Phone: 08-16-2022 14:59-0500 Body mass index (BMI) [Ratio] 31 kg/m2 Dr. Sam Luis Work Phone: [facility] Work Phone: 08-16-2022 14:59-0500 Body weight 95.[address] Sam Luis Work Phone: [facility] Work Phone: 01-22-2022 13:01-0400 Body height 175.[address] Sam Luis Work Phone: [facility] Work Phone: 01-22-2022 13:01-0400 Body mass index (BMI) [Ratio] 33.5 kg/m2 Dr. Sam Luis Work Phone: [facility] Work Phone: 01-22-2022 13: Body weight 103.[address] Sam Luis Work Phone: [facility] Work Phone: Encounters Encounter Date Encounter Type Care Provider Facility Start: 11-02-2024 ambulatory Sam Luis Facility:[facility] Start: 10-19-2024 End: 10-19-[address] Sam Luis MD Work Phone: [facility] Work Phone: Start: 10-19-2024 End: 10-19-[address] [facility] Start: 10-19-2024 End: 10-19-2024 ambulatory Sam Luis Facility:[facility] Start: 07-20-2024 End: 07-20-[address] [facility] Start: 07-20-2024 End: 07-20-2024 ambulatory Sam Luis Facility:[facility] Start: 07-06-2024 End: 07-06-2024 Emergency department patient visit [facility] Start: 05-21-2024 End: 05-21-2024 ambulatory Sam Luis Facility:[facility] Start: 01-25-2024 End: 01-25-2024 ambulatory Sam Luis Facility:[facility] Start: 10-27-2023 End: 10-27-2023 ambulatory [facility] Work Phone: Start: 10-27-2023 End: 10-27-2023 Patient encounter procedure [facility] Start: 05-04-2023 End: 05-04-2023 ambulatory [facility] Work Phone: Start: 05-04-2023 End: 05-04-2023 Patient encounter procedure [facility] Start: 08-18-2022 Non-patient / Non-visit Dr. Sae Luis Work Phone: [facility] Start: 08-18-2022 Non-patient / Non-visit Dr. Sae Luis Work Phone: [facility] Start: 08-17-2022 End: 08-18-2022 Evaluation and management of inpatient [facility] Start: 08-17-2022 Non-patient / Non-visit Dr. Sae Luis Work Phone: [facility] Start: 08-17-2022 Non-patient / Non-visit Dr. Sae Luis Work Phone: [facility] Start: 08-16-2022 Non-patient / Non-visit Dr. Sae Luis Work Phone: [facility] Start: 08-16-2022 Non-patient / Non-visit Dr. Sae Luis Work Phone: [facility] Start: 08-11-2022 Non-patient / Non-visit Dr. Sae Luis Work Phone: [facility] Start: 08-11-2022 End: 08-11-[address] Sam Luis Work Phone: [facility] Start: 04-16-2022 End: 04-16-[address] Sam Luis Work Phone: [facility] Work Phone: Start: 04-16-2022 End: 04-16-[address] Sam Luis Work Phone: [facility] Start: 04-16-2022 End: 04-16-[address] Sam Luis Work Phone: [facility] Start: 02-22-2022 End: 02-22-[address] Sam Luis Work Phone: [facility] Start: 01-22-2022 End: 01-22-[address] Sam Luis Work Phone: [facility] Start: 01-14-2022 End: 01-14-2022 Patient encounter procedure [facility] - [facility] Start: 12-30-2021 End: 12-30-2021 Patient [facility] [place] [facility] Start: 01-11-2017 End: 01-11-[address] [facility] Procedures Date Procedure Procedure Detail Performing Clinician Start: 08-16-2022 End: 08-16-[address] Sam Luis Work Phone: Start: 08-16-2022 Laminectomy,Lumbar M icro Decompression (Not Applicable) Dr. Sam Luis Work Phone: Start: 01-14-2022 MRI of lumbar spine Start: 12-30-2021 X-ray of lumbosacral spine Nasal Screen MRSA/MSSA Dr. Zack Luis Work Phone: Plan of Treatment Date Care Activity Detail Author Start: 08-18-2022 Patient discharge [facility] Work Phone: Start: 08-17-2022 Admission procedure [facility] Work Phone: Start: 08-16-2022 Notification of physician [facility] Work Phone: Start: 08-16-2022 Care regimes management [facility] Work Phone: Start: 08-16-2022 Application of inter mittent pneumatic compression device [facility] Work Phone: Start: 08-16-2022 Catheterization of vein [facility] Work Phone: Start: 08-16-2022 Consultation [facility] Work Phone: Start: 08-16-2022 End: 08-16-2022 Following clinical pathway protocol [facility] Work Phone: Start: 08-16-2022 Incentive spirometry [facility] Work Phone: Start: 08-16-2022 Measuring intake and output [facility] Work Phone: Start: 08-16-2022 Neurovascular assessment [facility] Work Phone: Start: 08-16-2022 Oxygen therapy [facility] Work Phone: Start: 08-16-2022 Patient education [facility] Work Phone: Start: 08-16-2022 Procedure discontinued [facility] Work Phone: Start: 08-16-2022 Provision of activity privileges [facility] Work Phone: Start: 08-16-2022 Referral to service [facility] Work Phone: Start: 08-16-2022 Taking patient vital signs [facility] Work Phone: Start: 08-16-2022 [facility] Work Phone: Start: 08-16-2022 Admission procedure [facility] Work Phone: Start: 01-22-2022 Patient referral [facility] Work Phone: Patient referral [facility] Work Phone: Serum testosterone measurement [facility] Testosterone Free [M ass/volume] in Serum or Plasma [facility] Testosterone measurement [facility] Payers Date Payer Category Payer Self-pay [id number] 2021 [facility] [id number] 2019 Medicare [id number] 2016 Unknown 1955 Unknown [id number] Unknown [id number] Unknown [id number] [id number] Unknown [id number] [id number] Unknown [id number] [id number] Unknown [id number] [id number] Unknown [id number] [id number] Social History Date Type Detail Facility Start: 09-19-2020 End: 10-01-2022 Tobacco smoking status NHIS Unknown if ever smoked [facility] Start: 09-02-2020 Non-smoker [facility] Start: 1955 Sex Assigned At Male [facility] Start: 10-01-2022 Tobacco smoking stat us CTIS Ex-smoker (finding) [facility] Start: 10-30-2024 Sex Male (finding) [facility] Medical Equipment Procedure Code Equipment Code Equipment Origin al Text Equipment Identifier Dates PATCH,AMNION 2X3CM FDA Start: 08-16-2022 PATCH,AMNION 2X3CM FDA Start: 08-16-2022 PATCH,AMNION 2X3CM FDA Start: 08-16-2022 PATCH,AMNION 2X3CM FDA Start: 08-16-2022 Goals Date Patient Goal Desired Activity /State Functional Status Date Assessment Result Facility 08-18-2022 Functional status Bedrest [facility] Work Phone: Mental Status Date Assessment Result Facility 08-18-2022 Cognitive function Voice/Name [facility] Work Phone: Evaluation note Note Date & Type Note Facility Evaluation note No assessment information availa ble [facility] Work Phone: Evaluation note Note Date & Type Note Facility Evaluation note Diagnosis Onset Date Spinal stenosis acute [facility] Work Phone: Evaluation note Note Date & Type Note Facility Evaluation note Diagnosis Onset Date Spinal stenosis acute Spinal stenosis of lumbar re gion with radiculopathy acute [facility] Work Phone: Reason for referral (narrative) Note Date & Type Note Facility Reason for referral (narrative) No reason for referral information available [facility] Work Phone: Summary Purpose Family History Relationship Condition Age at Onset Recorded Date/T rajesh mother Malignant neoplasm of breast Unknown Malignant neoplasm of colon Unknown Advance Directives Advance Directive Response Recorded Date/ Time Living Will No September 02 2:16pm Power of Truck Safety Inspector No September 02, 2020 2:16pm Advance Directive Response Recorded Date/ Time Name of Medical Power of Truck Safety Inspector August 03, 2022 1:14pm Living Will No August 16 3 2:59pm Power of Truck Safety Inspector No August 16, 2 023 2:59pm Advance Directive Response Recorded Date/ Time Living Will No August 16 3 3:59pm Power of Truck Safety Inspector No August 16, 2 023 3:59pm Chief Complaint and Reason for Visit Chief Complaint BACK PAIN / Dorsalgi a, unspecified Chief Complaint BACK PAIN / Dorsalgi a, unspecified lumber spine Reason for Visit Spinal stenosis Chief Complaint BACK PAIN / Dorsalgi a, unspecified lumber spine Lumbar spine Reason for Visit Spinal stenosis Spinal stenosis of lumbar region with radiculopathy Chief Complaint lumbar spine LUMBAR LAMINECTOMY DECOMPRESSION L4-5 AND L3-4 LUMBAR LAMINECTOMY DECOMPRESSION L4-5 AND L3-4 LUMBAR LAMINECTOMY DECOMPRESSION L4-5 AND L3-4 LUMBAR LAMINECTOMY DECOMPRESSION L4-5 AND L3-4 LUMBAR LAMINECTOMY DECOMPRESSION L4-5 AND L3-4 LUMBAR LAMINECTOMY DECOMPRESSION L4-5 AND L3-4 LUMBAR LAMINECTOMY DECOMPRESSION L4-5 AND L3-4 LUMBAR LAMINECTOMY DECOMPRESSION L4-5 AND L3-4 Reason for Visit Spinal stenosis Spinal stenosis of lumbar region with radiculopathy Additional Source Comments (unrecognized sect ion and content) No Status Records FoundNo Status Records FoundNo Status Records Found INFORMATION SOURCE (unrecogn ized section and content) DATE CREATED AUTHOR 02/01/2018 [facility] DATE CREATED AUTHOR AUTHOR'S ORGANIZ ATION 07/11/2024 [facility] DATE CREATED AUTHOR AUTHOR'S ORGANIZ ATION 11/03/2024 [facility] Goals (unrecognized section and content) Goals may be documented in a n alternate sectionGoals may be documented in an alternate sectionGoals may be documented in an alternate sectionGoals may be documented in an alternate sectionGoals may be documented in an alternate sectionGoals may be documented in an alternate sectionGoals may be documented in an alternate section Care Teams (unrecognized sec tion and content) Team Status: Active Member Role Status Dates Dr. Sam Luis MD Family Provider Active Dr. Sam Luis MD Primary Care Provider Active Team Status: Inactive Member Role Status Dates Dr. Sam Luis MD Primary Care Provider, Attending Provider Active Team Status: Inactive Member Role Status Dates Dr. Sam Luis MD Primary Care Provider Active Start: July 20, 2024 End: July 20, 2024 Dr. Sam Luis MD Attending Provider Active Start: July 20, 2024 End: July 20, 2024 Dr. Sam Luis MD Referring Provider Active Start: July 20, 2024 End: July 20, 2024 Team Status: Inactive Member Role Status Dates Dr. Sam Luis MD Primary Care Provider Active Start: October 19, 2024 End: October 19, 2024 Dr. Sam Luis MD Attending Provider Active Start: October 19, 2024 End: October 19, 2024 Dr. Sam Luis MD Referring Provider Active Start: October 19, 2024 End: October 19, 2024 FOR RECORDS PERTAINING TO PATIENTS WHO ARE OR HAVE BEEN ENROLLED IN A CHEMICAL DEPENDENCY/SUBSTANCEABUSE PROGRAM, SOME INFORMATION MAY BE OMITTED. This clinical summary was aggregated from multiple sources. Caution should be exercised in using it in the provision of clinical care. This summary normalizes information from multiple sources, and as a consequence, information in this document may materially change the coding, format and clinical context of patient data. In addition, data may be omitted in some cases. CLINICAL DECISIONS SHOULD BE BASED ON THE PRIMARY CLINICAL RECORDS. [email or web address] provides no warranty or guarantee of the accuracy or completeness of information in this document.
[2025-02-18 12:35] LABS: Hematocrit 45.0 % (40-54); Hemoglobin 15.9 g/dL (13.0-16.5); Immature Granulocytes Count 0.030 X10^3/uL (0.0-0.0); Mean Corp Hgb Conc 35.3 g/dL (32-36); Mean Corpuscular Volume 91.3 fL (80-94); Mean Platelet Vol. 12.3 fl (6.2-12.0); NRBC Flagged by Analyzer 0 % (0-5); Platelet Count 136 K/mm3 (150-450); RBC Distribution Width CV 12.9 % (11.6-14.6); RBC Distribution Width SD 41.4 fl (35.1-43.9); Red Blood Count 4.93 M/mm3 (4.6-6.2); White Blood Count 5.9 K/mm3 (4.4-11.0)
[2025-02-18 13:06] LABS: AST(SGOT) 41 U/L (<=37); Alanine Aminotransfer ALT/SGPT 57 U/L (<=46); Albumin, Serum 4.4 g/dL (3.4-4.8); Alkaline Phosphatase 119 U/L (40-129); Anion Gap 14 (5-15); BUN 17 mg/dL (4-19); BUN/Creat Ratio 16.7 RATIO (10-20); Calcium,Total 9.2 mg/dL (7.6-11.0); Carbon Dioxide 24.1 mmol/L (21.0-32.0); Chloride 105 mmol/L (98-108); Globulin 2.0 g/dL (2.2-4.2); Glucose 115 mg/dL (70-99); Potassium 3.7 mmol/L (3.3-5.1)
[2025-02-18 13:11] LABS: Creatinine, Urine (random) 190.00 mg/dL (39.00-259.00); Microalbumin,Random Urine 18.2 mg/L (NO RANGE EST.)
== END | disposition home or self-care (01) ==
LOC: MFPLAB 09:29
PROVIDERS: PCP Family Medicine; Referring Provider Family Medicine; Visit Provider Family Medicine
DX: E29.1 Testicular hypofunction (principal); E11.9 Type 2 diabetes mellitus without complications
CPT/HCPCS: 36415; 80053; 82043; 82570; 83036; 84403; 85025